=== PATIENT | male | born 1970 | race Caucasian/White ===

== ENCOUNTER 2021-03-24 21:55 | Emergency (ER) | payer MEDICARE, SELFPAY ==
--- NOTE | ~2021-03-24 | CT_ITS ---
EXAMINATION: CT ABDOMEN AND PELVIS WITHOUT CONTRAST CLINICAL INFORMATION: Bilateral flank pain with fever COMPARISON: None TECHNIQUE: Multidetector volumetric imaging was performed from the superior aspect of the liver through the pubic symphysis. Sagittal and coronal reformatted images were obtained on the technologist's workstation. This CT examination was performed using dose optimization techniques as appropriate, variously including the following: *Automated exposure control *Adjustment of mA and/or kV according to patient size (this includes techniques or standardized protocols for targeted exams where dose is matched to indication/reason for exam; i.e. extremities or head) *Use of iterative reconstruction technique DLP: 654 mGy-cm FINDINGS: LUNG BASES: The visualized lung bases are unremarkable. LIVER, GALLBLADDER, AND BILIARY TREE: The liver is normal in size, shape, and attenuation. No focal hepatic lesion or biliary ductal dilatation is present. The gallbladder is unremarkable with no evidence of radiopaque gallstones, gallbladder wall thickening, or obvious pericholecystic inflammatory changes. PANCREAS: Unremarkable. SPLEEN: Unremarkable. ADRENAL GLANDS: Unremarkable. KIDNEYS AND URETERS: The kidneys are normal in size, shape, and attenuation. No hydronephrosis, hydroureter, or calculi seen. No perinephric stranding. BLADDER: Unremarkable. GASTROINTESTINAL TRACT: Scattered colonic diverticula. No evidence of diverticulitis. Normal appendix. Stomach and small bowel unremarkable. ABDOMINAL WALL: No significant hernia is appreciated. LYMPH NODES: Normal. VASCULAR: Aorta mildly atherosclerotic. No aneurysm. PELVIC VISCERA: Unremarkable. OSSEOUS STRUCTURES: No acute or suspicious osseous abnormalities. CT/CT abdomen pelvis wo con IMPRESSION: No urinary calculi. No etiology for the patient's bilateral flank pain and fever is identified. Please note that mild pyelonephritis is not excluded on unenhanced CT.
[2021-03-24 22:47] VITALS: BP 143/96; PULSE 109; RESP 16; TEMP 37.6; O2SAT 98; BMI 30.7
[2021-03-24] MEDS: Acetaminophen 325 MG TABLET 650 MG PO (22:56)
[2021-03-24 23:14] LABS: Appearance Urine CLEAR; Color Urine YELLOW; Glucose Urine UA 100 MG/DL (NEG); Leukocyte Esterase Urine NEG (NEG); Nitrite Urine NEG (NEG); Urine Blood NEG (NEG); Urine Ketones NEG (NEG); Urine Protein NEG (NEG-TRACE)
--- NOTE | 2021-03-24 23:43 | ED.FEVER ---
HPI - Fever General Chief Complaint: Fever Stated Complaint: fever Source: patient Mode of arrival: ambulatory Limitations: no limitations History of Present Illness HPI Narrative: 50-year-old male presents with bilateral flank pain, fever of 104.0 and nausea. States that he did eat some [place]og[place] food prior to experiencing this fever and pain. Patient is angry, does not want answering questions, and is questioning how long this process is going to take. MD elicited complaint: fever Onset (ago): day(s) (1) Measured temperature: 104 F Relieving factors: nothing Associated symptoms: chills, abdominal pain, nausea and back/flank pain Treatments prior to arrival fever: none Related Data Allergies Allergy/AdvReac Type Severity Reaction Status Date / Time No Known Allergies Allergy Verified 03/24/21 22:52 Review of Systems Review of Systems: Constitutional: No Weight loss, positive Fever, positive Chills, No Night Sweats, No Fatigue, No Malaise ENT/Mouth: No Hearing loss, No Ear Pain, No Nasal Congestion, No Sinus Pain, No Hoarseness, No sore throat, No Rhinorrhea, No Swallowing Difficulty Eyes: No Eye Pain, No Swelling, No Redness, No Foreign Body, No Discharge, No Vision Changes Cardiovascular: No Chest Pain, No SOB, No Dyspnea on Exertion, No Orthopnea, No Edema, No Palpitations Respiratory: No Cough, No Sputum, No Wheezing, No Smoke Exposure, No Dyspnea Gastrointestinal: Positive Nausea, now Vomiting, no Diarrhea, positive abdominal Pain, No Hematochezia, No Melena Genitourinary: no irregular bleeding, No Dysuria, No Urinary Frequency, No Hematuria, No Urinary Incontinence, No Urgency, No Flank Pain, No Urinary Flow Changes, No Hesitancy Musculoskeletal: No joint pain, No Myalgias, No Joint Swelling Skin: No Skin Lesions, No rash Neuro: No Weakness, No Numbness, No Paresthesias, No Loss of Consciousness, No Dizziness, No Headache Psych: No Anxiety/Panic, No Depression, No SI/HI/AH/VH, No Social Issues Heme/Lymph: No Bruising, No Bleeding,No Lymphadenopathy Endocrine: No Polyuria, No Polydipsia, No Temperature Intolerance Yes all other systems are reviewed and are negative [facility] Past Medical History Attestation statement: The following information was validated with the patient. Source: old records reviewed Medical History Hypertension No known health problems Social History Social History Advance Directives: No Physical Exam Vital Signs: Vital Signs: Last Vital Signs Temp 99.6 F 03/24/21 22:47 Pulse 109 H 03/24/21 22:47 Resp 16 03/24/21 22:47 BP 143/96 H 03/24/21 22:47 Pulse Ox 98 03/24/21 22:47 Body Mass Index 30.7 Appearance: Alert. Oriented X3. Moderate emotional distress. Eyes: Pupils equal, round and reactive to light. Sclera nonicteric ENT: Pharynx normal. Moist mucous membranes Neck: Normal inspection. Neck supple. CVS: Normal heart rate and rhythm. Pulses normal. Respiratory: No respiratory distress. Breath sounds normal. Abdomen: Soft and diffusely tender with bilateral CVA tenderness. Skin: Skin warm and dry. Normal skin color. Normal skin turgor. Extremities: No lower extremity edema. Gait well balanced with coordinated. Neuro: No motor deficit. No sensory deficit. Cranial nerves 2-12 intact. Course Course Course Narrative: 50-year-old male presents with abdominal pain, nausea, flank pain and fever of 104 at home. States that his symptoms started right after he ate [place]og[place] food. Physical exam indicates diffuse tenderness to abdominal palpation with CVA tenderness. Patient does not want to answer any questions. He is angry, asking how long his stay is going to be. I did describe in detail that with elevated fever and diffuse abdominal pain that this could be an acute abdomen. Patient agrees to continue with course of care for CT scan of abdomen and pelvis, labs, and urinalysis. 1:05 a.m., patient no longer wants to stay. Risks and benefits discussed twice prior to this by this [employer] as well as an RN. Patient discharged against medical advice. MDM - Fever MDM Narrative Medical decision making narrative: Appendicitis, diverticulitis, gastroenteritis Differential Diagnosis Differential diagnosis: Likely cellulitis, fever of unknown origin, pyelonephritis and sepsis Medical Records Attestation: I reviewed the patient's medical records. Lab Data Attestation: I reviewed the patient's lab results. Labs: Lab Results 03/24/21 Range/Units 23:08 Urine Color YELLOW Urine Appearance CLEAR Urine pH 6.0 (5.0-8.0) Ur Specific [place] 1.020 (1.005-1.025) Urine Protein NEG (NEG-TRACE) MG/DL Urine Glucose (UA) 100 H (NEG) MG/DL Urine Ketones NEG (NEG) MG/DL Urine Blood NEG (NEG) Urine Nitrite NEG (NEG) Ur Leukocyte Esterase NEG (NEG) Imaging Data CT scan - abdomen: Attestation: I personally reviewed and interpreted this imaging study as follows: Radiologist's impression: FINDINGS: LUNG BASES: The visualized lung bases are unremarkable.? LIVER, GALLBLADDER, AND BILIARY TREE: The liver is normal in size, shape, and attenuation. No focal hepatic lesion or biliary ductal dilatation is present. The gallbladder is unremarkable with no evidence of radiopaque gallstones, gallbladder wall thickening, or obvious pericholecystic inflammatory changes.? PANCREAS: Unremarkable.? SPLEEN: Unremarkable.? ADRENAL GLANDS: Unremarkable.? KIDNEYS AND URETERS: The kidneys are normal in size, shape, and attenuation. No hydronephrosis, hydroureter, or calculi seen. No perinephric stranding. ? BLADDER: Unremarkable.? GASTROINTESTINAL TRACT: Scattered colonic diverticula. No evidence of diverticulitis. Normal appendix. Stomach and small bowel unremarkable. ABDOMINAL WALL: No significant hernia is appreciated.? LYMPH NODES: Normal. VASCULAR: Aorta mildly atherosclerotic. No aneurysm. PELVIC VISCERA: Unremarkable.? OSSEOUS STRUCTURES: No acute or suspicious osseous abnormalities.? CT/CT abdomen pelvis wo con IMPRESSION: No urinary calculi. No etiology for the patient's bilateral flank pain and fever is identified. Please note that mild pyelonephritis is not excluded on unenhanced CT. Discharge Plan Discharge Clinical Impression: Fever of unknown origin, Abdominal pain Patient Disposition: Left Against Medical Advice Instructions: Fever in Adults (ED), Abdominal Pain (ED) Additional Instructions: You are leaving against medical advice. You are welcome to return at any time. Thank you for choosing this emergency department for evaluation. Please follow-up with primary care physician as needed. Return to the emergency department for any new, concerning, or worsening symptoms. Stand Alone Forms: Against Medical Advice Interventions: ED Discharge Assessment Last Done: 03/25/21 01:17
--- NOTE | 2021-03-25 01:17 | PC.NURSE ---
PT FOUND TO BE IN THE PRIETO YELLING, PACING WHILE ON THE PHONE. THEY HAVEN'T EVEN FUCKING DONE ANYTHING FOR ME, I AM FUCKING LEAVING, I AM OUT OF HERE THIS RN WAS AT BEDSIDE TRYING TO DEESCALATE PT, STATING PCT WOULD BE AT BEDSIDE FOR LABS SHORTLY AND SECURITY SERVICES MANAGER WOULD COME DISCUSS CT SCAN RESULTS WELL. PT TOLD THIS RN FUCK THAT, IM OUT OF HERE HE WAS OFFERED AMA PAPERWORK BUT REFUSED TO WAIT FOR IT TO BE PRINTED.
[2021-03-25 01:20] VITALS: TEMP 40
== END 2021-03-25 01:20 | disposition left against medical advice (07) ==
PROVIDERS: Emergency Provider Emergency Medicine; PCP Internal Medicine
DX: R50.9 Fever, unspecified (principal); R10.9 Unspecified abdominal pain
CPT/HCPCS: 74176; 81003; 96360; 99283; 99284

== ENCOUNTER 2021-03-25 04:49 | Emergency (ER) | payer MEDICARE, SELFPAY ==
--- NOTE | ~2021-03-25 | XR_ITS ---
EXAMINATION: CHEST 2 VIEWS CLINICAL INFORMATION: Fever, rule out pneumonia . COMPARISON: 08/02/2008. TECHNIQUE: PA and lateral views of the chest obtained. FINDINGS: The lungs are well expanded. No focal infiltrate, effusion, edema, or pneumothorax. Cardiac and mediastinal silhouettes are within normal limits for technique. No acute bony abnormality seen XR/XR chest 2V IMPRESSION: No evidence of acute disease
[2021-03-25 04:57] VITALS: BP 146/86; PULSE 119; RESP 18; TEMP 37.9; O2SAT 95; BMI 30.7
[2021-03-25] MEDS: Acetaminophen 325 MG TABLET 650 MG PO (05:27)
[2021-03-25] MEDS: Acetaminophen 325 MG TABLET PO (05:27)
[2021-03-25] MEDS: 0.9 % Sodium Chloride 1,000 ML 999 ML IV ×2 (05:38→08:24)
--- NOTE | 2021-03-25 05:52 | PC.NURSE ---
IV ACCESS OBTAINED, BLOOD SPECIMEN SENT TO LAB FOR PROCESSING. IVF HUNG AND INFUSING WITHOUT DIFFICULTY. AWAITING RESULTS AND IMPROVEMENT IN SYMPTOMS. AWARE OF PLAN OF CARE.
[2021-03-25 06:11] LABS: Influenza A PCR NEGATIVE (Negative); Influenza B PCR NEGATIVE (Negative); Resp Syncy Virus RNA Qual PCR NEGATIVE (Negative); SARS COV2 PCR INHOUSE NEGATIVE (Negative)
--- NOTE | 2021-03-25 07:07 | ED.GENADULT ---
HPI - General Adult General Chief complaint: Nausea/Vomiting/Diarrhea Stated complaint: PT was here earlier, LWT Time Seen by Provider: 03/25/21 05:21 Source: patient Mode of arrival: ambulatory Limitations: no limitations History of Present Illness HPI narrative: 50-year-old male who presents emergency department for evaluation of fever, chills, sweats, abdominal pain, myalgias and arthralgias. The patient's symptoms started yesterday at around 5:30 p.m.. He states that he had a fever as high as 104? F. States that he had severe sweats and shaking chills. He denied cough, chest pain shortness of breath or dyspnea on exertion. He states that he was experiencing lower abdominal pain which he describes as a constant, gas like pain which is 5/10 at its worst. He had associated nausea with dry heaves but no productive vomiting. He denied any frequency, urgency or dysuria. He denied any change in his bowel movements such as diarrhea, bloody stools or dark stools. The patient was here last night and did have a CT scan of the abdomen pelvis but left prior to the result. He states that this morning his symptoms returned so he came back to the emergency department to get re-evaluated. The patient has not been vaccinated for COVID-19 but he believes that he had a COVID-19 infection last year but never tested positive. He has not had any tick bites or rashes. Related Data Previous Rx's Medication Instructions Recorded amoxicillin 500 mg tablet 1,000 mg PO Q12H 10 Days #40 tab 03/25/21 ondansetron 4 mg disintegrating 4 mg PO Q6-8H PRN #14 tab 03/25/21 tablet Allergies Allergy/AdvReac Type Severity Reaction Status Date / Time No Known Allergies Allergy Verified 03/24/21 22:52 Review of Systems Review of Systems: Yes all other systems are reviewed and are negative [facility] Past Medical History [facility] Narrative: Past medical history: Hypertension, GERD. Past surgical history: None. Social history: The patient does smoke cigarettes 1 pack a day times 40 years. He drinks alcohol 2 to 3 times a week, he states that he drinks 10 beers at a time. The patient does use drugs, he states that he snorted cocaine 2 days prior. He denies injecting drugs. Medical History Hypertension No known health problems Social History Social History Alcohol intake: current Patient Tobacco Use Status: Current everyday Tobacco user Advance Directives: No Physical Exam Vital Signs: Vital Signs: Last Vital Signs Temp 100.3 F 03/25/21 04:57 Pulse 72 03/25/21 08:00 Resp 18 03/25/21 04:57 BP 102/71 03/25/21 08:00 Pulse Ox 95 03/25/21 04:57 Body Mass Index 30.7 Const: General: cooperative and no acute distress Orientation/consciousness: oriented to person and oriented to place Limitations: no limitations HENMT: Head: Yes normal to inspection, Yes normocephalic and Yes atraumatic Ears: external ears normal General nose exam: Normal external nose present Face and sinus: Yes normal facial exam Mouth: Normal oral and palatal mucosa present Throat: Yes posterior oropharynx normal Eyes: General: appearance normal, both eyes and all related structures Pupils: Equal, round and reactive pupils present Neck: Neck: Yes normal visual inspection, Yes no lymphadenopathy, Yes trachea midline and Yes supple Chest: Chest palpation & inspection: normal inspection of the chest and normal palpation of entire chest wall Resp: Effort & Inspection: normal respiratory effort and able to speak in complete sentences Auscultation: clear to auscultation bilaterally Cardio: Rate: regular rate Rhythm: regular rhythm Heart sounds: S1 normal heart sound present, S2 normal heart sound present and no murmurs GI: Inspection: Yes normal to inspection Palpation (GI): Soft to palpation, nontender and no guarding Auscultation: normal bowel sounds : General: Yes no CVA tenderness Back/Spine/Pelvis: Back: no CVA tenderness Skin: General skin exam: no rashes or lesions noted Neuro: General: oriented to person and oriented to place Cranial nerves: Yes CN's II-XII intact bilaterally and Yes Equal, round and reactive pupils present Cognition (Neuro): normal cognition Motor exam (neuro): 5/5 motor strength present throughout Extrem: General: Yes normal to inspection Psych: Appearance: grossly normal Speech and movement: Normal speech and movement present Affect: normal affect Attitude: cooperative Thought process: Normal thought process present Thought content: Normal thought content present Course Course Course Narrative: 50-year-old male who presents emergency department for evaluation of fever, chills, sweats, abdominal pain, myalgias arthralgias which began yesterday at 5:30 p.m.. The patient was seen yesterday evening but left against medical advice at around 1:05 a.m.. He returned this morning since he did not feel any better. On examination this morning, he had a low-grade fever of 100.3? F, he was tachycardic with a pulse of 119 and hypertensive with a blood pressure of 146/86. His examination did not reveal an obvious source for his fever. The CT scan of the abdomen pelvis without IV contrast did not reveal an obvious source for his fever, the patient did have scattered colonic diverticula without evidence of diverticulitis, had a normal appearing appendix. I did order blood work on the patient. Patient was ordered to get normal saline IV x2 L, Toradol 30 mg IV for his myalgias and arthralgias and Zofran 4 mg IV for his nausea. 1000: The patient is feeling significantly better after the above treatment. Patient's laboratory evaluation was unremarkable. Chest x-ray was negative. COVID/influenza and RSV tests were negative. Urinalysis was negative. The patient is complaining of sore throat and is requesting antibiotics. I discussed viral versus bacterial infections and the patient would like to be treated with antibiotics therefore was prescribed amoxicillin 1000 mg twice a day for 10 days. He is also given prescription for Zofran ODT 4 mg, 1 every 6-8 hours as needed for nausea and vomiting. The patient was given verbal and printed instructions prior to discharge. The patient was advised to follow-up with his PCP in 2 days and to return to the emergency department if his symptoms get worse or if he develops any new symptoms that are concerning to him. Medical Decision Making Lab Data Result diagrams: 03/25/21 05:34 03/25/21 05:34 Labs: Lab Results 03/25/21 03/25/21 03/25/21 Range/Units 05:29 05:34 05:34 WBC 10.3 (4.8-10.8) X10*3/uL RBC 4.44 L (4.60-5.80) X10*6/uL Hgb 14.1 (14.0-18.0) g/dl Hct 40.9 L (42-52) % MCV 92.1 (80-98) fL MCH 31.8 (27.0-33.0) pg MCHC 34.5 (31.0-36.0) g/dl RDW 12.8 (11.0-16.0) % Plt Count 209 (160-400) X10*3/uL MPV 9.8 (9.4-12.4) fL Immature Gran % (Auto) 0.4 (0.0-0.4) % Neut % (Auto) 80.1 H (45-73) % Lymph % (Auto) 10.4 L (20-40) % [place] % (Auto) 8.3 (2-11) % Eos % (Auto) 0.6 (0-4) % Baso % (Auto) 0.2 (0-2) % Lymph # (Auto) 1.1 L (1.2-4.9) X10*3/uL [place] # (Auto) 0.9 (0.1-1.2) X10*3/uL Eos # (Auto) 0.1 (0.0-0.4) X10*3/uL Baso # (Auto) 0.0 (0.0-0.2) X10*3/uL Abs Immat Gran (auto) 0.04 H (0.00-0.03) X10*3/uL Absolute Neuts (auto) 8.3 (2.0-8.3) X10*3/uL Absolute Nucleated RBC 0.000 (0.0-0.012) X10*3/uL Nucleated RBC % (auto) 0.0 (0.0-0.2) /100WBC Sodium 135 (135-145) mmol/L Potassium 3.9 (3.3-5.1) mmol/L Chloride 98 (96-108) mmol/L Carbon Dioxide 23 (22-29) mmol/L Anion Gap 18 (12-20) BUN 12 (9-16) mg/dL Creatinine 0.94 (0.5-1.4) mg/dL Estim Creat Clear Calc 112.0 Estimated GFR > 60 Random Glucose 116 H (60-115) mg/dL Calcium 8.6 (8.4-10.2) mg/dL Total Bilirubin 0.5 (0.0-1.0) mg/dL Direct Bilirubin 0.2 (0.0-0.5) mg/dL AST 14 (5-37) U/L ALT 15 (0-40) U/L Alkaline Phosphatase 85 (39-117) U/L Total Protein 6.6 (6.5-8.0) g/dL Albumin 4.3 (3.5-5.0) g/dL Lipase 21 (8-78) U/L Coronavirus (PCR) NEGATIVE (Negative) Influenza Type A (PCR) NEGATIVE (Negative) Influenza Type B (PCR) NEGATIVE (Negative) RSV RNA Qual (PCR) NEGATIVE (Negative) Discharge Plan Discharge Clinical Impression: Acute dehydration Pharyngitis Qualifiers: Pharyngitis/tonsillitis etiology: other specified organisms Qualified Code(s): J02.8 - Acute pharyngitis due to other specified organisms Fever Qualifiers: Encounter type: initial encounter Vomiting Qualifiers: Vomiting Intractability: non-intractable Nausea presence: with nausea Patient Disposition: Home, Self-Care Instructions: Pharyngitis (ED) Additional Instructions: Your laboratory evaluation was unremarkable. The CT scan of your abdomen pelvis without IV contrast did not reveal a clear cause for your fever or your pain. Your chest x-ray was normal, no evidence for pneumonia on the x-ray. Your COVID 19, influenza and RSV tests were negative. You most likely have a viral infection causing your symptoms, you may have a bacterial throat infection therefore I am starting you on amoxicillin 1000 mg every 12 hours for 10 days. I am also prescribing Zosyn (ondansetron) 4 mg oral dissolvable tablets. Dissolve 1 tablet in your mouth every 6-8 hours as needed for nausea and vomiting. Take ibuprofen 200 mg pills, 3 pills every 6 hours as needed for pain. Take Tylenol (acetaminophen) 500 mg pills, 2 pills every 4 to 6 hours as needed for pain. Follow-up with your doctor in 2 days. Please return to the emergency department if your symptoms get worse or if you develop any symptoms that are concerning to you. Prescriptions: New amoxicillin 500 mg tablet 1,000 mg PO Q12H 10 Days Qty: 40 RF: 0 ondansetron 4 mg tablet,disintegrating 4 mg PO Q6-8H PRN (Reason: nausea and vomiting) Qty: 14 RF: 0
[2021-03-25 07:09] LABS: MANUAL DIFF FLAG NO
[2021-03-25 07:12] LABS: Basophils Percent Auto 0.2 % (0-2); Eosinophils Absolute Auto 0.1 X10*3/uL (0.0-0.4); Eosinophils Percent Auto 0.6 % (0-4); Hematocrit 40.9 % (42-52); Hemoglobin 14.1 g/dl (14.0-18.0); Imm Gran Abs Auto 0.04 X10*3/uL (0.00-0.03); Imm Gran Pct Auto 0.4 % (0.0-0.4); Lymphocytes Absolute Auto 1.1 X10*3/uL (1.2-4.9); Lymphocytes Percent Auto 10.4 % (20-40); Mean Corpuscular HGB Conc 34.5 g/dl (31.0-36.0); Mean Corpuscular Hemoglobin 31.8 pg (27.0-33.0); Mean Corpuscular Volume 92.1 fL (80-98); Mean Platelet Volume 9.8 fL (9.4-12.4); Monocytes Absolute Auto 0.9 X10*3/uL (0.1-1.2); Monocytes Percent Auto 8.3 % (2-11); Neutrophils Absolute Auto 8.3 X10*3/uL (2.0-8.3); Neutrophils Percent Auto 80.1 % (45-73); Platelet Count 209 X10*3/uL (160-400); Red Blood Count 4.44 X10*6/uL (4.60-5.80); Red Cell Distribution Width 12.8 % (11.0-16.0); White Blood Count 10.3 X10*3/uL (4.8-10.8)
[2021-03-25 07:51] LABS: Alanine Aminotransferase 15 U/L (0-40); Albumin Level 4.3 g/dL (3.5-5.0); Alkaline Phosphatase 85 U/L (39-117); Anion Gap 18 (12-20); Aspartate Amino Transferase 14 U/L (5-37); Bilirubin Direct 0.2 mg/dL (0.0-0.5); Bilirubin Total 0.5 mg/dL (0.0-1.0); Blood Urea Nitrogen 12 mg/dL (9-16); Calcium 8.6 mg/dL (8.4-10.2); Carbon Dioxide 23 mmol/L (22-29); Chloride 98 mmol/L (96-108); Estimated Glomerular Filt Rate > 60; Glucose Random 116 mg/dL (60-115); Lipase 21 U/L (8-78); Potassium 3.9 mmol/L (3.3-5.1); Sodium 135 mmol/L (135-145); Total Protein 6.6 g/dL (6.5-8.0)
[2021-03-25 08:00] VITALS: BP 102/71; PULSE 72
[2021-03-25] MEDS: Ketorolac Tromethamine 15 MG/ML VIAL 30 MG IVPUSH (08:41)
== END 2021-03-25 10:16 | disposition home or self-care (01) ==
PROVIDERS: Emergency Provider Emergency Medicine Emergency Medical Services
DX: E86.0 Dehydration (principal); J02.9 Acute pharyngitis, unspecified; R11.2 Nausea with vomiting, unspecified; R50.9 Fever, unspecified; R00.0 Tachycardia, unspecified; Z20.822 Contact with and (suspected) exposure to COVID-19; I10 Essential (primary) hypertension; F17.210 Nicotine dependence, cigarettes, uncomplicated
CPT/HCPCS: 0241U; 36415; 71046; 74176; 80053; 80076; 81003; 82248; 83690; 85025; 96361; 96374; 96375; 99283; 99284; 99285; J1885; J2405

== ENCOUNTER 2023-09-26 11:05 | Inpatient (IN) | payer MEDICARE, MEDICAID, SELFPAY ==
[2023-09-26] VITALS (8 sets, daily range): BP systolic 111–155; BP diastolic 69–94; PULSE 83–99; RESP 12–23; TEMP 36.5–37.2; O2SAT 93–98; BMI 29.4
--- NOTE | ~2023-09-26 | CT_ITS ---
EXAMINATION: CT CERVICAL SPINE WITHOUT CONTRAST CLINICAL INFORMATION: Neck pain, swelling. COMPARISON: None available. TECHNIQUE: Noncontrast multidetector CT imaging examination of the cervical spine is performed. The axial images and multiplanar reformatted images are reviewed. This CT examination was performed using dose optimization techniques as appropriate, variously including the following: *Automated exposure control *Adjustment of mA and/or kV according to patient size (this includes techniques or standardized protocols for targeted exams where dose is matched to indication/reason for exam; i.e. extremities or head) *Use of iterative reconstruction technique DLP: 461 mGy-cm FINDINGS: The skull base is intact. The visualized paranasal sinuses and mastoid air cells are well aerated. 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 Also, there is a 0.8 cm wide nonunited defect in the left posterior C1 arch. A well-corticated ossicle is present at the margin of the left atlantooccipital joint. These observations could be sequela of remote trauma. There are no acute fractures within the cervical spine. The cervical vertebra are normal in height. There is generally mild multilevel facet arthropathy, including the left-sided facet joint at C2-C3 and right-sided facet joint at C4-C5. There is negligible degenerative anterolisthesis of C4 on C5. At C5-C6, there is moderate degenerative loss of the disc height, endplate sclerosis, osteophytosis and minimal retrolisthesis of C5 on C6. The hypertrophied uncovertebral joints cause [id number] right and moderate left neural foraminal stenosis at C5-C6. The posterior disc-osteophyte complex at C5-C6 causes mild spinal canal stenosis. Mild discovertebral degenerative changes and uncovertebral joint hypertrophy at C6-C7. No prevertebral edema or soft tissue hematoma. There is edema of subcutaneous tissues and intermuscular planes of the posterior neck without evidence of any focal organized collection or soft tissue gas. There appears to be edema of the left semispinalis muscle (images 40-65, series 4). Apparent mild edema within the left oblique capitis inferior muscle (images 30-35, series 4). Mild edema is seen along the left sternocleidomastoid and the adjacent platysma muscle. Trace amount of bland appearing fluid is seen within the deep soft tissues of the left inferolateral neck. No pathologic sized lymph nodes. Thyroid gland is unremarkable. Mild paraseptal emphysema at the visualized lung apices. CT/CT cervical spine wo IV con IMPRESSION: * There is soft tissue edema of the posterior neck and left lateral neck. However, no evidence of any organized collection or soft tissue hematoma. The edema is predominantly seen along intermuscular tissue planes and in the subcutaneous tissues. Also, there does appear to be mild edematous thickening of the left semispinalis muscle and possible edema within the left oblique capitis inferior muscle. The specific cause of these abnormalities is uncertain. If there is no known trauma, then the possibility of myositis should be considered. 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 Query if there is any known remote history of [place] fracture. No acute fractures within the cervical spine. * Moderate degenerative disc disease at C5-C6.
--- NOTE | ~2023-09-26 | CT_ITS ---
EXAMINATION: CT chest, abdomen and pelvis without IV contrast. CLINICAL INDICATION: New onset renal failure. Chronic cough x1 month. COMPARISON: CT abdomen pelvis without contrast 03/25/2021. TECHNIQUE: 5 minutes thin axial and reformatted 3 mm thin sagittal and coronal images of chest, abdomen pelvis were obtained without IV contrast. DLP [id number]. This CT examination was performed using dose optimization technique as appropriate, variously including the following: Automated exposure control Adjustment of MA and/or KV according to patient size(this includes techniques or standardized protocols for targeted exams where dose is matched to indication/reason for exam; extremities or head. Use of iterative reconstruction techniques. FINDINGS: CHEST: LUNGS: The lungs are well-expanded with platelike atelectasis in the lingula and both lung bases. Mediastinum: The heart size and great vessels are normal caliber. The central trachea and the bronchi are widely patent. Thyroid lobes are symmetrical and normal. No abnormal size mediastinal or hilar lymph nodes seen. There is minimal coronary artery calcification. Pleura: There is no pleural thickening, calcification or effusion. Axilla: No abnormal size axillary lymph nodes. The chest wall is unremarkable. ABDOMEN AND PELVIS: Liver, ducts and gallbladder: The liver is normal size, contour and density. No focal lesion or intrahepatic ductal dilatation seen. There is no radiopaque gallstones and wall thickening. Pancreas: Unremarkable unremarkable. Spleen: Unremarkable. Adrenal glands: Unremarkable. Kidneys and ureters: Both kidneys are normal size, contour and position. No radiopaque renal calculi or hydronephrosis seen. There is minimal perinephric stranding. Lymphovascular structures: Abdominal aorta is of normal caliber. The renal arteries are patent bilaterally. No abnormal size retroperitoneal or mesenteric lymph nodes seen. GI tract: There is layering contrast and fluid in mildly distended stomach. The small bowel loops are normal caliber. There is scattered gas, diverticula and minimal stool in the colon without distention. No free air or free fluid seen. Appendix is normal caliber Abdominal wall: Unremarkable. Pelvis: The urinary bladder is mildly distended. No bladder wall thickening or radiopaque calculi seen. No inguinal hernia. Osseous structures: No aggressive lytic or sclerotic process seen. Mild degenerative facet joint arthropathy L5-S1 disc level. CT/CT abdomen pelvis wo IV con IMPRESSION: 1. Platelike atelectasis in the lingula and both lung bases. 2. No acute process seen in the abdomen or pelvis. 3. Scattered colonic diverticulosis without diverticulitis. 4. No radiopaque renal calculi, hydronephrosis.
--- NOTE | ~2023-09-26 | CT_ITS ---
EXAMINATION: CT HEAD WITHOUT CONTRAST CLINICAL INFORMATION: Left upper extremity monoparesis COMPARISON: None available. TECHNIQUE: Contiguous axial imaging was performed from the skull base to vertex without intravenous administration of contrast. This CT examination was performed using dose optimization techniques as appropriate, variously including the following: *Automated exposure control *Adjustment of mA and/or kV according to patient size (this includes techniques or standardized protocols for targeted exams where dose is matched to indication/reason for exam; i.e. extremities or head) *Use of iterative reconstruction technique DLP: 614 mGy-cm FINDINGS: Ventricles, sulci and cisterns are normal. There is no midline shift, no abnormal intra- or extra- axial fluid accumulation. Jeffery and white matter differentiation is normal. Bone window images show no evidence of skull fracture. Marked mucosal thickening opacifying the posterior left ethmoid air cells is seen. CT/CT head/brain wo IV con IMPRESSION: 1. Normal CT scan of the brain. 2. No intracranial hemorrhage or skull fracture is seen. 3. No evidence of space occupying lesion could be found. 4. The current plain CT scan of the brain shows no diagnostic evidence of acute cerebral infarction.
--- NOTE | ~2023-09-26 | US_ITS ---
EXAMINATION: US VENOUS WITH DOPPLER UPPER EXTREMITY, LEFT CLINICAL INFORMATION: Left thumb edema. COMPARISON: None available. TECHNIQUE: Ultrasound of the upper extremity is performed using compression sonography and color and pulse Doppler flow with assessment of augmentation of flow. There is also imaging and Doppler assessment of the jugular and subclavian veins. Spectral analysis with color-flow imaging is performed. FINDINGS: Respiratory variation, normal compression, and augmented flow are noted throughout the upper extremity including the axillary, brachial, cubital, and radial and ulnar veins. There is normal flow in the internal jugular and subclavian veins. There is no visible deep or superficial thrombophlebitis. If the patient's symptoms progress, a followup ultrasound in 5 -7 days might be of value to exclude proximal propagation from a nonvisualized distal arm vein. US/US venous duplex UE LT IMPRESSION: No DVT demonstrated in left upper extremity.
--- NOTE | 2023-09-26 11:25 | ECG_ITS ---
Test Reason : cp Blood Pressure : / mmHG Vent. Rate : 094 BPM Atrial Rate : 094 BPM P-R Int : 178 ms QRS Dur : 112 ms QT Int : 344 ms P-R-T Axes : 041 042 030 degrees QTc Int : 430 ms Normal sinus rhythm Right bundle branch block Abnormal ECG When compared with ECG of 08-JUN-2013 11:20, Right bundle branch block is now Present Referred By: Generic ED Physician Electronically Signed By:JIMMY KAUR
--- NOTE | 2023-09-26 12:17 | ED_ITS ---
HPI - Neuro Symptoms/Deficit General Chief Complaint: Neuro Symptoms/Deficit Stated Complaint: L arm numbness Time Seen by Provider: 09/26/23 11:29 Source: patient Mode of arrival: ambulatory Limitations: no limitations History of Present Illness HPI Narrative: 53 yo male with hx of heavy smoker and sniffs heroin intermittently did so last night. States he has not been to the doctors in years. He notes he went to bed at 3am and his left hand was okay then woke up at 1030am and his left hand wasn't working. He states he isn't sure what happened and has been losing track of time. he also notes chest pain and productive cough center of chest pain for 1 month. denies IVDA to me. Onset (ago): hour(s) (unsure of timing very vague since 3am) Location: left arm History of same: No Severity: severe Quality: weak Relieving factors: none Exacerbating factors: none Context: sudden onset On Anticoagulants: No Associated symptoms: chest pain, cough, fever/chills, headaches and loss of appetite Treatments Prior to Arrival: none Related Data Home Medications Medication Instructions Recorded Confirmed amlodipine 5 mg tablet 5 mg PO DAILY 09/26/23 09/26/23 omeprazole 20 mg capsule,delayed 20 mg PO DAILY indigestion 09/26/23 09/26/23 release Allergies Allergy/AdvReac Type Severity Reaction Status Date / Time No Known Allergies Allergy Verified 03/24/21 22:52 Review of Systems 2 Review of Systems: Constitutional : No Weight loss, No Fever, pos Chills ENT/Mouth : No sore throat, No Rhinorrhea Eyes: No Eye Pain, No Swelling Cardiovascular : pos Chest Pain, pos SOB, no Dyspnea on Exertion, No Orthopnea, No Edema, No Palpitations Respiratory : No Cough, No Sputum Gastrointestinal : pos Nausea, No Vomiting, No Diarrhea, No abdominal Pain, No Hematochezia, No Melena Genitourinary : No Dysuria, No Urinary Frequency Musculoskeletal : No joint pain, No Myalgias, No Joint Swelling Skin : No Skin Lesions, No rash Neuro : pos Weakness, No Numbness, No Dizziness, No Headache Psych : No Anxiety/Panic, No Depression Heme/Lymph: No Bruising, No Lymphadenopathy Endocrine : No Polyuria, No Polydipsia All other systems reviewed and are negative [facility] Past Medical History Attestation statement: The following information was validated with the patient. Source: old records reviewed Medical History Hypertension No known health problems Social History Social History Alcohol intake: current Alcohol type: beer Patient Tobacco Use Status: Current everyday Tobacco user Smoked in Last 30 Days: Yes Substance Use Type: Crack/Cocaine and Heroin Advance Directives: No Advance Directives Information Provided: No Physical Exam 2 Vital Signs: Vital Signs: Last Vital Signs Temp 97.9 F 09/26/23 15:26 Pulse 92 09/26/23 15:26 Resp 12 09/26/23 15:26 BP 147/94 H 09/26/23 15:26 Pulse Ox 95 09/26/23 15:26 O2 Del Method Nasal Cannula 09/26/23 15:26 O2 Flow Rate 2 09/26/23 15:26 BMI result Body Mass Index 29.4 Appearance: Alert. Oriented X3. Mild acute distress. Anxious diaphoretic Eyes: Pupils equal, round and reactive to light. ENT: Pharynx normal. Neck: Normal inspection. Neck supple. CVS: tachycardic heart rate and rhythm. Pulses normal. Respiratory: No respiratory distress. Breath sounds diminished Abdomen: Soft and nontender. Skin: Skin warm and dry. Normal skin color. Normal skin turgor. Extremities: No lower extremity edema. L hand weakness no yard motor operator pulse intact Neuro: Oriented X 3. 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 No sensory deficit L eyelid area appears slightly drooped as well (states this is chronic). Course Course Course Narrative: elevated WBC count at this time infection suspected IV ceftriaxone ordered 1242pm Reevaluation(s) Reevaluation #1: STAT hyperkalemia meds ordered - calcium, lokelma, albuterol, insulin, dextrose, HCO3, albuterol consult to nephrology 110pm Dr. Kolb will come to see patient Dr. Kolb at bedside now 116pm plan for all meds, sierra and repeat K at 230pm will notify Dr. Senior of potential Reevaluation #2: REFUSES SIERRA CATHETER AWARE WE ARE WORRIED ABOUT HIS KIDNEYS HE IS REFUSING Reevaluation #3: K down to 4.3 increase in lactic acidosis due to albuterol use and not infection or severe sepsis was given 10mg for hyperkalemia 1400 out of sierra catheter Additional Reevaluation(s): patient now moving L hand and now states he has tingling in R leg suspect anxiety vs withdrawal. He is moving L hand now. He is not a candidate for TNK given intermittent symptoms and onset last known well 3am. He also cannot have contrast due to AMANDEEP. Medications Administered Generic Name Dose Route Start Last Admin Trade Name Freq PRN Reason Stop Dose Admin Sodium Chloride 1,000 mls @ 150 mls/hr 09/26/23 15:00 09/26/23 15:30 Ns IVCONT 09/26/23 21:33 150 mls/hr .Q6H40M JIM Administration Sodium Chloride 1,000 mls @ 999 mls/hr 09/26/23 15:00 09/26/23 15:30 Ns IV 09/26/23 16:00 999 mls/hr .Q1H1M JIM Administration Discontinued Medications Generic Name Dose Route Start Last Admin Trade Name Freq PRN Reason Stop Dose Admin Albuterol Sulfate 5 mg 09/26/23 13:07 09/26/23 13:21 Albuterol Sulfate (0.083%) 2.5 Mg/3 Ml Vial.Neb INHALE 09/26/23 13:08 Not Given ONCE ONE Albuterol Sulfate 7.5 mg/ 10 mg 09/26/23 13:20 09/26/23 13:23 Albuterol Sulfate 2.5 mg INHALE 09/26/23 13:21 10 mg ONCE ONE Administration Dextrose 25 gm 09/26/23 13:04 09/26/23 13:14 Dextrose 50 % 25 Gm/50 Ml Syringe IVPUSH 09/26/23 13:05 25 gm ONCE ONE Administration Sodium Chloride 1,000 mls @ 999 mls/hr 09/26/23 12:45 09/26/23 15:09 Ns IV 09/26/23 13:45 Infused .Q1H1M JIM Infusion Ceftriaxone Sodium 2 gm/ 50 mls @ 100 mls/hr 09/26/23 12:41 09/26/23 14:29 Sodium Chloride IV 09/26/23 13:10 Infused ONCE ONE Infusion Calcium Gluconate 2 gm in 100 mls @ 50 mls/hr 09/26/23 13:04 09/26/23 13:18 Calcium Gluconate IV 09/26/23 15:03 50 mls/hr ONCE ONE Administration Sodium Chloride 1,000 mls @ 999 mls/hr 09/26/23 13:15 09/26/23 14:30 Ns IV 09/26/23 14:15 Infused .Q1H1M JIM Infusion Insulin Human Regular 10 unit 09/26/23 13:04 09/26/23 13:13 Insulin Regular, Human 100 Unit/Ml 3 Ml Vial IVPUSH 09/26/23 13:05 10 unit ONCE ONE Administration Lidocaine HCl 10 ml 09/26/23 14:23 09/26/23 15:12 Lidocaine Hcl 2 % Urojet 10 Ml Jel.Pf.Chuck TOPICAL 09/26/23 14:24 10 ml ONCE ONE Administration Morphine Sulfate 4 mg 09/26/23 11:51 09/26/23 12:51 Morphine Sulfate 4 Mg/Ml Cartridge IVPUSH 09/26/23 11:52 4 mg ONCE ONE Administration Protocol Ondansetron HCl 4 mg 09/26/23 12:46 09/26/23 12:51 Ondansetron Hcl 4 Mg/2 Ml Vial IVPUSH 09/26/23 12:47 4 mg ONCE ONE Administration Sodium Bicarbonate 50 meq 09/26/23 13:04 09/26/23 13:15 Sodium Bicarbonate 8.4% 50 Meq/50 Ml Syringe IVPUSH 09/26/23 13:05 50 meq ONCE ONE Administration Sodium Zirconium Cyclosilicate 10 gm 09/26/23 13:04 09/26/23 13:14 Sodium Zirconium Cyclosilicate 10 Gm Powd.Pack PO 09/26/23 13:05 10 gm ONCE ONE Administration Medical Decision Making Medical Decision Making MDM Narrative: 53 yo male with PMH with heavy smoking history here with c/o chest pain and cough x 1 month and then sniffed heroin last night and now has 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 He thinks his last known well was 3am but he is not sure and notes he is losing track of time. At this time labs, cultures, lactic acid - CT chest for mass doubt VTE given 1+ month history. I am obtaining CTA of head and neck for possible stroke vs dissection. IV morphine for pain Differential Diagnosis Differential Diagnoses: The differential diagnosis associated with the presentation includes mass, stroke, dissection Admission/Observation Consideration of admission/observation: Escalation of care including admission/observation considered Dr. Kolb and Dr. Senior aware no need for ICU - can hold off HD at this time Consult Healthcare Provider Management of the patient was discussed with: Hospitalist (hospitalist will admit) and Machine Builder Lab Data MDM Lab Attestation statement: I reviewed the patient's lab results. 09/26/23 12:25 09/26/23 14:35 Labs: Lab Results 09/26/23 09/26/23 09/26/23 Range/Units 12:25 12:28 13:09 WBC 18.9 H (4.8-10.8) X10*3/uL RBC 4.92 (4.60-5.80) X10*6/uL Hgb 15.3 (14.0-18.0) g/dl Hct 44.6 (42.0-52.0) % MCV 90.7 (80.0-98.0) fL MCH 31.1 (27.0-33.0) pg MCHC 34.3 (31.0-36.0) g/dl RDW 13.6 (11.0-16.0) % Plt Count 284 (160-400) X10*3/uL MPV 9.3 L (9.4-12.4) fL Immature Gran % (Auto) 1.5 H (0.0-0.4) % Neut % (Auto) 82.6 H (45-73) % Lymph % (Auto) 5.4 L (20-40) % Brooke % (Auto) 10.1 (2-11) % Eos % (Auto) 0.2 (0-4) % Baso % (Auto) 0.2 (0-2) % Lymph # (Auto) 1.0 L (1.2-4.9) X10*3/uL [place]oke # (Auto) 1.9 H (0.1-1.2) X10*3/uL Eos # (Auto) 0.0 (0.0-0.4) X10*3/uL Baso # (Auto) 0.0 (0.0-0.2) X10*3/uL Abs Immat Gran (auto) 0.28 H (0.00-0.03) X10*3/uL Absolute Neuts (auto) 15.6 H (2.0-8.3) x10*3/uL Absolute Nucleated RBC 0.020 H (0.0-0.012) X10*3/uL Nucleated RBC % (auto) 0.1 (0.0-0.2) /100WBC Smear Tech's Comments VERIFIED PT 11.8 (11.1-13.3) SEC INR 1.0 (0.9-1.1) VBG pH 7.29 L (7.32-7.43) VBG pCO2 33 mmHg VBG pO2 133 mmHg VBG HCO3 16 L (22-26) mmol/L VBG O2 Saturation 99.0 % VBG Base Excess -8.9 mmol/L Sodium 138 (135-145) mmol/L Potassium 7.1 H* (3.3-5.1) mmol/L Chloride 104 (96-108) mmol/L Carbon Dioxide 17 L (22-29) mmol/L Anion Gap 24 H (12-20) BUN 29 H (9-16) mg/dL Creatinine 3.14 H (0.5-1.4) mg/dL Estim Creat Clear Calc 31.7 Estimated GFR 21 POC Glucose 82 (60-115) mg/dL Random Glucose 78 (60-115) mg/dL Lactic Acid 2.7 H* (0.5-2.0) mmol/L Lactic Acid F/U @ 2Hr (0.5-2.0) mmol/L Calcium 7.9 L D (8.4-10.2) mg/dL Magnesium 2.9 H (1.6-2.6) mg/dL Total Bilirubin 0.3 (0.0-1.0) mg/dL Direct Bilirubin 0.1 (0.0-0.5) mg/dL AST 94 H (5-37) U/L ALT 44 H (0-40) U/L Alkaline Phosphatase 106 (39-117) U/L Total Creatine Kinase 5217 H (38-174) U/L Troponin I High Sens 114.5 H* (<3.5-35.0) ng/L B-Natriuretic Peptide 71 (<100) pg/mL Total Protein 8.3 H (6.5-8.0) g/dL Albumin 5.3 H (3.5-5.0) g/dL Lipase 41 (8-78) U/L Urine Color Urine Appearance Urine pH (5.0-9.0) Ur Specific [place] (1.005-1.025) Urine Protein (Neg-Trace) mg/dL Urine Glucose (UA) (Negative) mg/dL Urine Ketones (Negative) mg/dL Urine Blood (Negative) Urine Nitrite (Negative) Ur Leukocyte Esterase (Negative) Urine RBC (0-2) /HPF Urine WBC (0-5) /HPF Ur Squamous Epith Cells (0-2) /HPF Urine Bacteria (None Seen) Hyaline Casts (0-2) /LPF Urine Opiates Screen (Not Detect) Urine Fentanyl Screen (Not Detect) Ur Barbiturates Screen (Not Detect) Ur Phencyclidine Scrn (Not Detect) Ur Amphetamines Screen (Not Detect) U Benzodiazepines Scrn (Not Detect) Urine Cocaine Screen (Not Detect) U Marijuana (THC) Screen (Not Detect) Ethyl Alcohol < 10 mg/dL COVID-19 (NANCY) Negative (Negative) COVID-19 Clin Com See Note Influenza Type A (DAYANARA) Negative (Negative) Influenza Type B (DAYANARA) Negative (Negative) Influenza A & B Note See Note 09/26/23 09/26/23 09/26/23 Range/Units 14:19 14:35 15:05 WBC (4.8-10.8) X10*3/uL RBC (4.60-5.80) X10*6/uL Hgb (14.0-18.0) g/dl Hct (42.0-52.0) % MCV (80.0-98.0) fL MCH (27.0-33.0) pg MCHC (31.0-36.0) g/dl RDW (11.0-16.0) % Plt Count (160-400) X10*3/uL MPV (9.4-12.4) fL Immature Gran % (Auto) (0.0-0.4) % Neut % (Auto) (45-73) % Lymph % (Auto) (20-40) % Brooke % (Auto) (2-11) % Eos % (Auto) (0-4) % Baso % (Auto) (0-2) % Lymph # (Auto) (1.2-4.9) X10*3/uL [place] # (Auto) (0.1-1.2) X10*3/uL Eos # (Auto) (0.0-0.4) X10*3/uL Baso # (Auto) (0.0-0.2) X10*3/uL Abs Immat Gran (auto) (0.00-0.03) X10*3/uL Absolute Neuts (auto) (2.0-8.3) x10*3/uL Absolute Nucleated RBC (0.0-0.012) X10*3/uL Nucleated RBC % (auto) (0.0-0.2) /100WBC Smear Tech's Comments PT (11.1-13.3) SEC INR (0.9-1.1) VBG pH (7.32-7.43) VBG pCO2 mmHg VBG pO2 mmHg VBG HCO3 (22-26) mmol/L VBG O2 Saturation % VBG Base Excess mmol/L Sodium (135-145) mmol/L Potassium 4.3 D (3.3-5.1) mmol/L Chloride (96-108) mmol/L Carbon Dioxide (22-29) mmol/L Anion Gap (12-20) BUN (9-16) mg/dL Creatinine (0.5-1.4) mg/dL Estim Creat Clear Calc Estimated GFR POC Glucose 84 (60-115) mg/dL Random Glucose (60-115) mg/dL Lactic Acid (0.5-2.0) mmol/L Lactic Acid F/U @ 2Hr 4.2 H* (0.5-2.0) mmol/L Calcium (8.4-10.2) mg/dL Magnesium (1.6-2.6) mg/dL Total Bilirubin (0.0-1.0) mg/dL Direct Bilirubin (0.0-0.5) mg/dL AST (5-37) U/L ALT (0-40) U/L Alkaline Phosphatase (39-117) U/L Total Creatine Kinase (38-174) U/L Troponin I High Sens 108.2 H* (<3.5-35.0) ng/L B-Natriuretic Peptide (<100) pg/mL Total Protein (6.5-8.0) g/dL Albumin (3.5-5.0) g/dL Lipase (8-78) U/L Urine Color Yellow Urine Appearance Cloudy Urine pH 5.5 (5.0-9.0) Ur Specific [place] 1.010 (1.005-1.025) Urine Protein 100 (2+) H (Neg-Trace) mg/dL Urine Glucose (UA) Negative (Negative) mg/dL Urine Ketones Negative (Negative) mg/dL Urine Blood Large (3+) H (Negative) Urine Nitrite Negative (Negative) Ur Leukocyte Esterase Negative (Negative) Urine RBC >20 H (0-2) /HPF Urine WBC 0-5 (0-5) /HPF Ur Squamous Epith Cells 3-5 (0-2) /HPF Urine Bacteria None Seen (None Seen) Hyaline Casts 6-10 (0-2) /LPF Urine Opiates Screen POSITIVE H (Not Detect) Urine Fentanyl Screen POSITIVE H (Not Detect) Ur Barbiturates Screen Not Detected (Not Detect) Ur Phencyclidine Scrn Not Detected (Not Detect) Ur Amphetamines Screen Not Detected (Not Detect) U Benzodiazepines Scrn Not Detected (Not Detect) Urine Cocaine Screen POSITIVE H (Not Detect) U Marijuana (THC) Screen Not Detected (Not Detect) Ethyl Alcohol mg/dL COVID-19 (NANCY) (Negative) COVID-19 Clin Com Influenza Type A (DAYANARA) (Negative) Influenza Type B (DAYANARA) (Negative) Influenza A & B Note Independent Interpretation I performed an independent interpretation of an: EKG and CT Scan (no ICH) Interpretation: Rate: 94 Rhythm: NSR [place]: normal Normal P waves. Normal JEAN. RBBB pattern ST T wave : no LESLY, t waves are a littl peaked qTC: 430 prior studies: RBBB new. The study has been interpreted contemporaneously by me. . Radiology Impression Discussion of test interpretation with radiology: I have reviewed the radiologist's reading. Critical Care Time Critical Care Time Critical Care Time: Yes Total Critical Care Time: 60 Attestation: emergent treatment of hyperkalemia, renal consult, repeat labs, IVF x 3L, empiric antibiotics, admission I attest to this time spent taking care of the patient Discharge Plan Discharge Clinical Impression: Left hand weakness, Acute hyperkalemia, Elevated troponin, Acute urinary retention, Opiate abuse, continuous, Cocaine abuse, Acidosis, lactic Acute renal failure Qualifiers: Acute renal failure type: unspecified Qualified Code(s): N17.9 - Acute kidney failure, unspecified Rhabdomyolysis Qualifiers: Rhabdomyolysis type: non-traumatic Qualified Code(s): M62.82 - Rhabdomyolysis Patient Disposition: Admitted As Inpatient
[2023-09-26 12:34] LABS: Venous Blood Gas Refer to POC result
[2023-09-26 12:35] LABS: Basophils Percent Auto 0.2 % (0-2); Eosinophils Percent Auto 0.2 % (0-4); Hematocrit 44.6 % (42.0-52.0); Hemoglobin 15.3 g/dl (14.0-18.0); Imm Gran Abs Auto 0.28 X10*3/uL (0.00-0.03); Imm Gran Pct Auto 1.5 % (0.0-0.4); Lymphocytes Percent Auto 5.4 % (20-40); MANUAL DIFF FLAG SCAN; Mean Corpuscular HGB Conc 34.3 g/dl (31.0-36.0); Mean Corpuscular Hemoglobin 31.1 pg (27.0-33.0); Mean Corpuscular Volume 90.7 fL (80.0-98.0); Mean Platelet Volume 9.3 fL (9.4-12.4); Monocytes Absolute Auto 1.9 X10*3/uL (0.1-1.2); Monocytes Percent Auto 10.1 % (2-11); NRBC Pct Auto 0.1 /100WBC (0.0-0.2); Neutrophils Absolute Auto 15.6 x10*3/uL (2.0-8.3); Neutrophils Percent Auto 82.6 % (45-73); Platelet Count 284 X10*3/uL (160-400); Red Blood Count 4.92 X10*6/uL (4.60-5.80); Red Cell Distribution Width 13.6 % (11.0-16.0); SCAN SMEAR FLAG 1; White Blood Count 18.9 X10*3/uL (4.8-10.8)
[2023-09-26 12:36] LABS: VBG Base Excess -8.9 mmol/L; VBG HCO3 16 mmol/L (22-26); VBG pCO2 33 mmHg; VBG pH 7.29 (7.32-7.43); VBG pO2 133 mmHg
[2023-09-26 12:41] LABS: Prothrombin Time 11.8 SEC (11.1-13.3)
[2023-09-26 12:50] LABS: Ethanol < 10 mg/dL
[2023-09-26] MEDS: ondansetron HCL 4 MG/2 ML VIAL IVPUSH (12:51)
[2023-09-26] MEDS: Morphine Sulfate 4 MG/ML CARTRIDGE IVPUSH (12:51)
[2023-09-26] MEDS: cefTRIAXone sodium 2 GM in 0.9 % Sodium Chloride 50 ML IV (12:51)
[2023-09-26 12:52] LABS: Lactic Acid 2.7 mmol/L (0.5-2.0)
[2023-09-26] MEDS: 0.9 % Sodium Chloride 1,000 ML 999 ML IV ×3 (12:52→15:30)
[2023-09-26 12:53] LABS: B Type Natriuretic Peptide 71 pg/mL (<100)
[2023-09-26 12:54] LABS: IDNOW Serial# 9DB6401D; Influenza A Negative (Negative); Influenza B2 Negative (Negative)
[2023-09-26 12:55] LABS: COVID-19 Test Negative (Negative); IDNOW Serial# 08D9AD1C
[2023-09-26 12:57] LABS: SLIDE REVIEW VERIFIED
[2023-09-26 13:02] LABS: Troponin-I High Sensitivity 114.5 ng/L (<3.5-35.0)
[2023-09-26 13:05] LABS: Alanine Aminotransferase 44 U/L (0-40); Albumin Level 5.3 g/dL (3.5-5.0); Alkaline Phosphatase 106 U/L (39-117); Anion Gap 24 (12-20); Aspartate Amino Transferase 94 U/L (5-37); Bilirubin Direct 0.1 mg/dL (0.0-0.5); Bilirubin Total 0.3 mg/dL (0.0-1.0); Blood Urea Nitrogen 29 mg/dL (9-16); Calcium 7.9 mg/dL (8.4-10.2); Carbon Dioxide 17 mmol/L (22-29); Chloride 104 mmol/L (96-108); Creatinine Clr Calc Pharmacy 31.7; Estimated Glomerular Filt Rate 21; Glucose Random 78 mg/dL (60-115); Lipase 41 U/L (8-78); Magnesium 2.9 mg/dL (1.6-2.6); Potassium 7.1 mmol/L (3.3-5.1); Sodium 138 mmol/L (135-145); Total Protein 8.3 g/dL (6.5-8.0)
[2023-09-26] MEDS: Insulin Regular, Human 100 UNIT/ML 3 ML VIAL 10 UNIT IVPUSH (13:13)
[2023-09-26 13:14] LABS: Glucose, Whole Blood 82 mg/dL (60-115)
[2023-09-26] MEDS: Dextrose 50 % 25 GM/50 ML SYRINGE IVPUSH (13:14)
[2023-09-26] MEDS: Sodium Zirconium Cyclosilicate 10 GM POWD.PACK PO (13:14)
[2023-09-26] MEDS: Sodium Bicarbonate 8.4% 50 MEQ/50 ML SYRINGE IVPUSH (13:15)
[2023-09-26] MEDS: Calcium Gluconate/NaCl,Iso-Osm 2 GM/100 ML PLAST..BAG IV (13:18)
[2023-09-26] MEDS: Albuterol Sulfate 7.5 MG, Albuterol Sulfate (0.083%) 2.5 MG 10 MG INHALE (13:23)
[2023-09-26 14:24] LABS: Glucose, Whole Blood 84 mg/dL (60-115)
[2023-09-26 14:31] LABS: Reflex Lactate? Lactic Acid Added
[2023-09-26 14:53] LABS: Potassium 4.3 mmol/L (3.3-5.1)
[2023-09-26 14:57] LABS: ~Lactic Acid-LAB USE ONLY 4.2 mmol/L (0.5-2.0)
--- NOTE | 2023-09-26 15:09 | PC.NURSE ---
pt has a suspected large amount of money on his person, he did not want this RN to count it with him in front of him. he refused to have the money counted and locked in with security. Lula Gilbert RN at bedside witnessed this conversation,
[2023-09-26] MEDS: Lidocaine HCl 2 % Urojet 10 ML JEL.PF.APP TOPICAL (15:12)
[2023-09-26 15:13] LABS: Appearance Urine Cloudy; Color Urine Yellow; Glucose Urine UA Negative (Negative); Leukocyte Esterase Urine Negative (Negative); Nitrite Urine Negative (Negative); PH 5.5 (5.0-9.0); UMIC TRIGGER UACC YES; Urine Blood Large (3+) (Negative); Urine Ketones Negative (Negative); Urine Protein 100 (2+) mg/dL (Neg-Trace)
--- NOTE | 2023-09-26 15:18 | PM.CNNEP ---
History of Present Illness Reason for Consult Consult date: 10/21/23 Reason for consult: AMANDEEP and Hyperkalemia Chief Complaint Chief complaint: left arm weakness History of Present Illness Narrative: 53 yo male with hx of heavy smoker and sniffs heroin intermittently did so last night. States he has not been to the doctors in years. He notes he went to bed at 3am and his left hand was okay then woke up at 1030am and his left hand wasn't working. He states he isn't sure what happened and has been losing track of time. he also notes chest pain and productive cough center of chest pain for 1 month. denies IVDA to me. On admission, potassium was 7.1 with creatinine of 3.3 and hence this consult K is being treated medically Review of Systems Constitutional: Denies fever(s) and Denies weight loss Cardiovascular: Denies chest pain Respiratory: Denies cough and Denies hemoptysis Gastrointestinal: Denies abdominal pain, Denies diarrhea and Denies nausea Musculoskeletal: Denies back pain Denies focal weakness PMFSH Past Medical History Medical History (Updated 10/10/23 @ 00:02 by Heath Barth) Clostridioides difficile diarrhea Cocaine abuse Opiate abuse, continuous Alcohol use disorder Hypertension No known health problems Social History Social History Household Members: Significant Other Housing: House Do you presently have visiting nurse or other home services: No Alcohol intake: current Alcohol type: beer Comment: refuses alarms Patient Tobacco Use Status: Current everyday Tobacco user Tobacco use type: Cigarette Cigarette Packs Per Day: 1 Cigarettes Per Day: 20.0 e-Cigarette/Vaping Use: Currently Using Substance Use Type: Crack/Cocaine service: No Meds Allergies Allergy/AdvReac Type Severity Reaction Status Date / Time No Known Allergies Allergy Verified 03/24/21 22:52 Active Medications: Current Medications Sodium Chloride (Ns) 1,000 mls @ 200 mls/hr IVCONT .Q5H [facility] Stop: 09/26/23 19:59 Sodium Chloride (Ns) 1,000 mls @ 999 mls/hr IV .Q1H1M JIM Stop: 09/26/23 16:00 Home Medications Medication Instructions Recorded Confirmed Last Taken Type amlodipine 5 mg tablet 5 mg PO DAILY 09/26/23 09/26/23 09/24/23 History omeprazole 20 mg capsule,delayed 20 mg PO DAILY indigestion 09/26/23 09/26/23 09/24/23 History release Physical Exam Vital Signs: Last Vital Signs Temp 97.7 F 09/26/23 11:14 Pulse 99 09/26/23 14:53 Resp 13 09/26/23 14:53 BP 137/92 H 09/26/23 14:53 Pulse Ox 93 09/26/23 14:53 O2 Del Method Nasal Cannula 09/26/23 14:53 O2 Flow Rate 2 09/26/23 14:53 BMI result Body Mass Index 29.4 Const General: comfortable Nutritional Appearance: well nourished Orientation/consciousness: patient oriented x3 HEENT Head: No normal to inspection Mouth: moist mucous membranes Neck Neck: Yes supple and Yes no JVD Resp Auscultation: clear to auscultation bilaterally, no rales and rub present Cardio Jugular venous distension: no JVD Palpation: no palpable S3 and no palpable S4 Heart sounds: no rubs GI Palpation (GI): Soft to palpation and nontender Percussion: No Fluid wave present General: Yes no CVA tenderness Back/Spine/Pelvis Back: no CVA tenderness Skin General skin exam: no rashes or lesions noted Neuro General: patient oriented x3 Extrem General: Yes no pedal edema and No clubbing Results Lab Results 09/27/23 04:46 10/01/23 07:43 Lab results: Chemistry 09/26/23 09/26/23 12:25 14:35 Sodium 138 Potassium 7.1 H* 4.3 D Carbon Dioxide 17 L BUN 29 H Creatinine 3.14 H Calcium 7.9 L D Hematology 09/26/23 12:25 WBC 18.9 H Hgb 15.3 Plt Count 284 Urinalysis 09/26/23 15:05 Urine Color Yellow Urine Appearance Cloudy Urine pH 5.5 Ur Specific [place] 1.010 Urine Protein 100 (2+) H Urine Glucose (UA) Negative Urine Ketones Negative Urine Blood Large (3+) H Urine Nitrite Negative Ur Leukocyte Esterase Negative Assessment and Plan (1) Acute hyperkalemia: Status: Resolved (2) Acute renal failure: Qualifiers: Acute renal failure type: unspecified Qualified Code(s): N17.9 - Acute kidney failure, unspecified Status: Resolved Plan Middle aged man with AMANDEEP and severe hyperkalemia DDx for AMANDEEP is extensive including urinary retention, rhabdo, hypoperfusion from volume depletion and GN Suggest Treat hyperkalemia medically and aggressively including Insulin/Dextrose/Lokelma and sodium bicarb Repeat K and if still elevated or if EKG reveals changes of hyperK , would need dialysis Ceballos catheter Image kidneys- USG or CT IV hydration ;Keep I > O Avoid hypotension Check urine for UA, Protein. Creatinine, sodium Procedures Date of Service Date of Service: 10/21/23
[2023-09-26 15:22] LABS: Amphetamine Screen Urine Not Detected (Not Detect); Bacteria Urine None Seen (None Seen); Barbiturates, Urine Not Detected (Not Detect); Benzodiazepines Screen Urine Not Detected (Not Detect); Cannabinoid Screen Urine Not Detected (Not Detect); Cocaine Screen Urine POSITIVE (Not Detect); Fentanyl, urine POSITIVE (Not Detect); Opiate Screen Urine POSITIVE (Not Detect); Phencyclidine Screen Urine Not Detected (Not Detect); RBC Urine >20 /HPF (0-2); WBC Urine 0-5 /HPF (0-5)
[2023-09-26] MEDS: 0.9 % Sodium Chloride 1,000 ML 150 ML IVCONT (15:30)
[2023-09-26 15:33] LABS: Troponin-I High Sensitivity 108.2 ng/L (<3.5-35.0)
--- NOTE | 2023-09-26 15:38 | PHA.MEDREC ---
Pharmacy Consult ? Medication Reconciliation Pharmacy has completed the medication reconciliation. Patient reported medications. Amanda Cotto, BorisD
--- NOTE | 2023-09-26 15:55 | PM.IMHP ---
History of Present Illness Date of Service: 09/26/23 Attending physician on admission: Osiel Lopez Chief Complaint: Left arm numbness Pt is a 53-year-old male with a PMH significant for?HTN, GERD, alcohol use disorder, and polysubstance use disorder who presents to the ED multiple complaints, though mostly concerning for?left upper extremity weakness and numbness. Patient is irritable, easily arousable, and emotionally labile during interview and exam. Patient is often jumping from topic to topic and difficult to get a clear answer from. Patient denies significant history of heroin use, but states that last night he sniffed ?just a little line?. This morning when he woke up his left felt weak and numb. Was unable to open or close his hand. Patient also complains that he is having difficulty standing or walking because his right leg ?feels like rubber? or ?like a fake leg? and also complains of left ankle pain where he sprained it some time ago. Patient apparently has been ?losing time? and is unsure when symptoms began. Also complains of central chest pain that has been ongoing for the past month. Finds it difficult to describe exactly what it feels like, but states it feels like there is ?something moving around in his chest? and ?like my arteries are clogged . Reports feeling it most when his dog steps on his chest. Patient denies significant use of heroin except for 1 time when he attempted to commit suicide by overdosing. Patient currently denies SI/HI. Initially denies cocaine use, but eventually reports smoking crack cocaine around once a week. Also reports smoking 1 pack of cigarettes daily and drinking 6-7 beers a week. However, patient states he did not eat or drink anything yesterday but spent most of his time at the bar. In the ED pt was HR 99 with, tachypnea of 23, compressive slightly hypertensive at 147/94. Labs were significant for leukocytosis 18.9, potassium 7.1 with repeat 4.3, BUN 29, creatinine 3.14, lactic acid 2.7 with repeat 4.2, AST 94, ALT 44, CPK 5217, troponin 114.5 with repeat 108.2. UA negative for UTI. Tested negative for COVID and influenza a and B. will CT of abdomen and pelvis found no acute process. CT of chest found platelike atelectasis in the lingula and both lung bases. CT of head found no acute intracranial hemorrhage, skull fracture, space-occupying lesion, or acute cerebral infarction. EKG demonstrated normal sinus rhythm with RBBB. Pt was treated with morphine, ceftriaxone, ondansetron, insulin, dextrose, Lokelma, albuterol, and lidocaine. Pt will be admitted to the hospital for treatment and further evaluation of AMANDEEP, rhabdomyolysis, and hyperkalemia in the setting of polysubstance use. Review of Systems Review of Systems: Negative except for that stated in the [facility] Medical History (Updated 09/26/23 @ 17:20 by SHAKIR Pereira) Alcohol use disorder Hypertension No known health problems Social History Alcohol intake: current Alcohol type: beer Patient Tobacco Use Status: Current everyday Tobacco user Smoked in Last 30 Days: Yes Substance Use Type: Crack/Cocaine and Heroin Advance Directives: No Advance Directives Information Provided: No Meds Allergies Allergy/AdvReac Type Severity Reaction Status Date / Time No Known Allergies Allergy Verified 03/24/21 22:52 Active Medications: Current Medications Sodium Chloride (Ns) 1,000 mls @ 150 mls/hr IVCONT .Q6H40M [facility] Stop: 09/26/23 21:33 Last Admin: 09/26/23 15:30 Dose: 150 mls/hr Sodium Chloride (Ns) 1,000 mls @ 999 mls/hr IV .Q1H1M [facility] Stop: 09/26/23 16:00 Last Admin: 09/26/23 15:30 Dose: 999 mls/hr Home Medications Medication Instructions Recorded Confirmed Last Taken Type amlodipine 5 mg tablet 5 mg PO DAILY 09/26/23 09/26/23 09/24/23 History omeprazole 20 mg capsule,delayed 20 mg PO DAILY indigestion 09/26/23 09/26/23 09/24/23 History release Physical Exam Vital Signs and Narrative: Vital Signs: Last Vital Signs Temp 97.9 F 09/26/23 15:26 Pulse 92 09/26/23 15:26 Resp 12 09/26/23 15:26 BP 147/94 H 09/26/23 15:26 Pulse Ox 95 09/26/23 15:26 O2 Del Method Nasal Cannula 09/26/23 15:26 O2 Flow Rate 2 09/26/23 15:26 BMI result Body Mass Index 29.4 Constitutional: Alert, irritable, emotionally labile, in no acute distress. Mental Status: Oriented to person, place and time. Eyes: Pupils are equal, round, and reactive to light. Ear, Nose, and Throat: Oropharynx clear, mucous membranes moist. Ears and nose without deformities. Trachea midline. Respiratory: Clear to auscultation bilaterally. No wheezing, rales, or rhonchi. Cardiovascular: S1, S2, tachy. No murmurs, rubs, or gallops. Gastrointestinal: Abdomen soft, non-tender, non-distended. Normal bowel sounds. Neurologic: Moves all extremities spontaneously. 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 symmetrical strength of lower legs bilaterally. Skin: Warm, dry. Musculoskeletal: No cyanosis or clubbing. Extremities: No edema. Psychiatric: Emotionally labile. Results Labs 09/26/23 12:25 09/26/23 14:35 Labs: Laboratory Results - last 24 hr 09/26/23 09/26/23 09/26/23 12:25 12:28 13:09 MCV 90.7 MCH 31.1 MCHC 34.3 RDW 13.6 Plt Count 284 MPV 9.3 L Immature Gran % (Auto) 1.5 H Neut % (Auto) 82.6 H Lymph % (Auto) 5.4 L [place] % (Auto) 10.1 Eos % (Auto) 0.2 Baso % (Auto) 0.2 Lymph # (Auto) 1.0 L [place] # (Auto) 1.9 H Eos # (Auto) 0.0 Baso # (Auto) 0.0 Abs Immat Gran (auto) 0.28 H Absolute Neuts (auto) 15.6 H Absolute Nucleated RBC 0.020 H Nucleated RBC % (auto) 0.1 Smear Tech's Comments VERIFIED PT 11.8 INR 1.0 VBG pH 7.29 L VBG pCO2 33 VBG pO2 133 VBG HCO3 16 L VBG O2 Saturation 99.0 VBG Base Excess -8.9 Anion Gap 24 H Estim Creat Clear Calc 31.7 Estimated GFR 21 POC Glucose 82 Random Glucose 78 Lactic Acid 2.7 H* Lactic Acid F/U @ 2Hr Calcium 7.9 L D Magnesium 2.9 H Total Bilirubin 0.3 Direct Bilirubin 0.1 AST 94 H ALT 44 H Alkaline Phosphatase 106 Total Creatine Kinase 5217 H B-Natriuretic Peptide 71 Total Protein 8.3 H Albumin 5.3 H Lipase 41 Urine Color Urine Appearance Urine pH Ur Specific [place] Urine Protein Urine Glucose (UA) Urine Ketones Urine Blood Urine Nitrite Ur Leukocyte Esterase Urine RBC Urine WBC Ur Squamous Epith Cells Urine Bacteria Hyaline Casts Urine Opiates Screen Urine Fentanyl Screen Ur Barbiturates Screen Ur Phencyclidine Scrn Ur Amphetamines Screen U Benzodiazepines Scrn Urine Cocaine Screen U Marijuana (THC) Screen Ethyl Alcohol < 10 COVID-19 (NANCY) Negative COVID-19 Clin Com See Note Influenza Type A (DAYANARA) Negative Influenza Type B (DAYANARA) Negative Influenza A & B Note See Note 09/26/23 09/26/23 09/26/23 14:19 14:35 15:05 MCV MCH MCHC RDW Plt Count MPV Immature Gran % (Auto) Neut % (Auto) Lymph % (Auto) [place] % (Auto) Eos % (Auto) Baso % (Auto) Lymph # (Auto) [place] # (Auto) Eos # (Auto) Baso # (Auto) Abs Immat Gran (auto) Absolute Neuts (auto) Absolute Nucleated RBC Nucleated RBC % (auto) Smear Tech's Comments PT INR VBG pH VBG pCO2 VBG pO2 VBG HCO3 VBG O2 Saturation VBG Base Excess Anion Gap Estim Creat Clear Calc Estimated GFR POC Glucose 84 Random Glucose Lactic Acid Lactic Acid F/U @ 2Hr 4.2 H* Calcium Magnesium Total Bilirubin Direct Bilirubin AST ALT Alkaline Phosphatase Total Creatine Kinase B-Natriuretic Peptide Total Protein Albumin Lipase Urine Color Yellow Urine Appearance Cloudy Urine pH 5.5 Ur Specific [place] 1.010 Urine Protein 100 (2+) H Urine Glucose (UA) Negative Urine Ketones Negative Urine Blood Large (3+) H Urine Nitrite Negative Ur Leukocyte Esterase Negative Urine RBC >20 H Urine WBC 0-5 Ur Squamous Epith Cells 3-5 Urine Bacteria None Seen Hyaline Casts 6-10 Urine Opiates Screen POSITIVE H Urine Fentanyl Screen POSITIVE H Ur Barbiturates Screen Not Detected Ur Phencyclidine Scrn Not Detected Ur Amphetamines Screen Not Detected U Benzodiazepines Scrn Not Detected Urine Cocaine Screen POSITIVE H U Marijuana (THC) Screen Not Detected Ethyl Alcohol COVID-19 (NANCY) COVID-19 Clin Com Influenza Type A (DAYANARA) Influenza Type B (DAYANARA) Influenza A & B Note Imaging Radiologist's Impressions: Impressions Abdomen/Pelvis CT 09/26/23 14:04 IMPRESSION: 1. Platelike atelectasis in the lingula and both lung bases. 2. No acute process seen in the abdomen or pelvis. 3. Scattered colonic diverticulosis without diverticulitis. 4. No radiopaque renal calculi, hydronephrosis. Chest CT 09/26/23 14:04 IMPRESSION: 1. Platelike atelectasis in the lingula and both lung bases. 2. No acute process seen in the abdomen or pelvis. 3. Scattered colonic diverticulosis without diverticulitis. 4. No radiopaque renal calculi, hydronephrosis. Head CT 09/26/23 14:04 IMPRESSION: 1. Normal CT scan of the brain. 2. No intracranial hemorrhage or skull fracture is seen. 3. No evidence of space occupying lesion could be found. 4. The current plain CT scan of the brain shows no diagnostic evidence of acute cerebral infarction. Assessment and Plan (1) Rhabdomyolysis: Qualifiers: Rhabdomyolysis type: non-traumatic Qualified Code(s): M62.82 - Rhabdomyolysis Status: Acute Plan Pt is a 53-year-old male with a PMH significant for?HTN, GERD, alcohol use disorder, and polysubstance use disorder who presents to the ED multiple complaints, though mostly concerning for?left upper extremity weakness and numbness. Patient is irritable, easily arousable, and emotionally labile during interview and exam. Patient is often jumping from topic to topic and difficult to get a clear answer from. Rhabdomyolysis CPK 5217 Likely secondary to cocaine, heroin, and fentanyl use Patient received aggressive IVF resuscitation in ED Will place on maintenance fluids at 150 mls/hr Follow CPK AMANDEEP Creatinine 3.14 Likely multifactorial: Secondary to rhabdomyolysis, polysubstance use, dehydration Treat as above Follow BMP Hyperkalemia But patient's potassium 7.1 at time of presentation with repeat 2 hours later of 4.3 Received albuterol, insulin, dextrose, and Lokelma in ED Follow BMP Lactic acidosis Initial lactate acid 2.7 with repeat 4.2 and then 2.3 Likely secondary to polysubstance use and then albuterol, not sepsis No indication of bacterial infection: CT of abdomen and pelvis negative, CT of chest negative, UA negative Patient did receive ceftriaxone in ED, but no clear indication to continue antibiotics at this time Tachycardia and tachypnea secondary to cocaine use and albuterol; leukocytosis reactionary Left arm weakness and numbness Likely secondary to rhabdomyolysis and polysubstance use Neurology consult Atypical chest pain Patient complains central, substernal nonradiating chest pain for the past month Possibly secondary to cocaine use Has reproducible Troponins flat; EKG without significant ischemic changes Will get echocardiogram Monitor on telemetry Alcohol use disorder Patient reports drinking 6-7 beers per week, though appears to drink much more Monitor on CIWA Low threshold for starting phenobarb protocol Polysubstance use disorder Frequent use of cocaine/crack, alcohol, reports using heroin only last night, also positive for fentanyl Addiction medicine consult Emotional lability Patient agitated and emotionally labile during interview and exam Reports having ?severe ADHD? but not on any home meds Reports previous suicide attempt by ODing on heroin Currently denies any SI/HI Psychiatry consult GERD Continue PPI Full Code Attending:?Dr. Lopez DVT Prophylaxis: Lovenox Pt will require a hospitalization of at least two nights for treatment of?rhabdomyolysis, AMANDEEP, and hyperkalemia in the setting of polysubstance use. Patient required hospitalization for aggressive IVF resuscitation, close monitoring of labs and cardiac function, as well as specialist evaluation. Quality Stroke Does the patient have a stroke diagnosis?: No VTE Prior VTE?: No VTE Risk Level:: Medical - moderate - high VTE Device Contraindication: Treatment Not Indicated VTE Drug Contraindication: N/A - Med Ordered
[2023-09-26 16:38] LABS: Reflex Lactate? 2 Y
--- NOTE | 2023-09-26 17:03 | MHC.EDTECH ---
PATIENT REPEATED LACTIC ACID DRAWN AND SENT TO LAB ,PT BELONINGS LIST DONE ,VITALS TAKEN .
[2023-09-26 17:22] LABS: ~Lactic Acid-LAB USE ONLY 2.3 mmol/L (0.5-2.0)
--- NOTE | 2023-09-26 17:40 | PC.NURSE ---
PTS GF TO TAKE HOME PTS BELONGINGS INCLUDING MONEY
[2023-09-26] MEDS: Omeprazole 20 MG CAPSULE.DR PO (18:02)
[2023-09-26] MEDS: amLODIPine Besylate 5 MG TABLET PO (18:02)
[2023-09-26] MEDS: Heparin Sodium,Porcine 5,000 UNIT/ML VIAL 5000 UNIT SUBCUT (18:02)
[2023-09-26] MEDS: Nicotine 21 MG PATCH.TD24 TRANSDERMA (18:02)
[2023-09-26 21:26] LABS: Anion Gap 16 (12-20); Blood Urea Nitrogen 28 mg/dL (9-16); Calcium 7.3 mg/dL (8.4-10.2); Carbon Dioxide 20 mmol/L (22-29); Chloride 102 mmol/L (96-108); Creatinine Clr Calc Pharmacy 55.3; Estimated Glomerular Filt Rate 40; Glucose Random 129 mg/dL (60-115); Potassium 3.5 mmol/L (3.3-5.1); Sodium 134 mmol/L (135-145)
--- NOTE | 2023-09-26 22:30 | MHC.EDTECH ---
patients knife has been located. Knife in security office. [place] have not been found. All other patient belongings except for his phone have been sent home with family
--- NOTE | 2023-09-26 22:31 | MHC.EDTECH ---
PATIENT KNIFE IS IN SECURITY ,PATIENT DID NOT COME WITH CAR KEYS .
[2023-09-27] MEDS: Acetaminophen 325 MG TABLET 650 MG PO (00:02)
[2023-09-27] MEDS: Heparin Sodium,Porcine 5,000 UNIT/ML VIAL 5000 UNIT SUBCUT ×3 (00:02→19:20)
[2023-09-27] MEDS: Melatonin 3 MG TABLET 6 MG PO (00:02)
[2023-09-27] MEDS: 0.9 % Sodium Chloride Flush 3 ML SYRINGE IVFLUSH ×2 (00:37→08:34)
[2023-09-27 04:08] VITALS: BP 135/75; PULSE 79; RESP 16; TEMP 36.7; O2SAT 97
[2023-09-27 05:18] LABS: Hematocrit 34.9 % (42.0-52.0); Hemoglobin 11.8 g/dl (14.0-18.0); Mean Corpuscular HGB Conc 33.8 g/dl (31.0-36.0); Mean Corpuscular Hemoglobin 30.6 pg (27.0-33.0); Mean Corpuscular Volume 90.6 fL (80.0-98.0); Mean Platelet Volume 9.7 fL (9.4-12.4); Platelet Count 175 X10*3/uL (160-400); Red Blood Count 3.85 X10*6/uL (4.60-5.80); Red Cell Distribution Width 13.6 % (11.0-16.0); White Blood Count 8.5 X10*3/uL (4.8-10.8)
[2023-09-27 05:42] LABS: Anion Gap 13 (12-20); Blood Urea Nitrogen 24 mg/dL (9-16); Calcium 7.7 mg/dL (8.4-10.2); Carbon Dioxide 23 mmol/L (22-29); Chloride 104 mmol/L (96-108); Creatinine Clr Calc Pharmacy 77.8; Estimated Glomerular Filt Rate 59; Glucose Random 99 mg/dL (60-115); Potassium 3.6 mmol/L (3.3-5.1); Sodium 136 mmol/L (135-145)
[2023-09-27 06:47] VITALS: BP 152/87; PULSE 85; RESP 16; TEMP 36.2; O2SAT 95
--- NOTE | 2023-09-27 07:00 | CA_ITS ---
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 The calculated ejection fraction is 69% by biplane method. - No obvious valvular pathology seen on this study. - There is mild dilatation of the ascending aorta measuring 3.90 cm. Findings Left Ventricle Normal left ventricular cavity size. There is normal left ventricular wall thickness. The left ventricular systolic function is normal. The calculated ejection fraction is 69% by biplane method. There is no evidence of regional wall motion abnormalities. Diastolic function is normal for age. LV peak GLS -21.1%. Right Ventricle Normal right ventricular cavity size and systolic function. Atria Both atria are normal in size. Aortic Valve There is a normal trileaflet aortic valve. There is no aortic valve stenosis. There is no aortic valve regurgitation. Mitral Valve The mitral valve appears normal. There is no mitral valve regurgitation. There is no mitral valve stenosis. Pulmonic Valve The pulmonic valve is likely normal. Tricuspid Valve Normal tricuspid valve structure. There is mild tricuspid valve regurgitation. Mild pulmonary hypertension is present. Great Vessels There is mild dilatation of the ascending aorta measuring 3.90 cm. Venous The inferior vena cava is normal in size and collapses greater than 50% with inspiration. Pericardium/Pleural There is no evidence of pericardial effusion. Prior Study Comparison No prior study available for comparison. Recommendations, Care & Conclusions No obvious valvular pathology seen on this study. Measurements 2D Linear Measurements IVSd: 0.82 0.6-0.9/0.6-1.0 cm LVIDd: 5.10 3.9-5.3/4.2-5.9 cm LVIDd Index: 2.44 2.4-3.2/2.2-3.1 cm/m2 LVIDs: 3.84 2.0-3.6 cm LVPWd: 0.76 0.7-1.1 cm LA Diam: 4.00 2.7-3.8/3.0-4.0 cm LAIDs Index: 1.91 1.5-2.3 cm/m2 LV Mass: 171.35 67-162/88-224 g LV Mass Index: 81.98 43-95/49-115 g/m2 LVOT Diam: 2.20 3.0+(-)1.3 cm 2D Systolic Function EF 4C: 59.70 >55% EF 2C: 76.90 >55% EF BiP: 68.60 >55% Mitral Valve MV Pk E: 1.04 MV PK A: 1.18 MV Decel Time: 203.00 E/A: 0.90 E'Lateral: 13.30 E'Medial: 8.92 E/E' Med: 11.70 E/E' Lat: 7.80 PHT: 59.00 MVA PHT: 3.73 Decel [place]: 5.15 Aortic Valve AoV Pk Dominic: 2.06 AoV Mn Dominic: 1.26 AoV VTI: 0.33 AoV Pk Grad: 17.00 Aov Mn Grad: 8.00 NICOL Cont.VTI: 3.18 LVOT LVOT Pk Dominic: 1.48 LVOT Mn Dominic: 0.97 LVOT VTI: 0.27 LVOT Pk Grad: 9.00 LVOT Mn Grad: 4.00 LVOT Diam: 2.20 LVOT Area: 3.80 Diastolic Function MV Pk E: 1.04 MV Pk A: 1.18 E/A: 0.90 E'Medial: 8.92 E/E' Med: 11.70 E' Laterial: 13.30 E/E' Lat: 7.80 Right Ventricle TAPSE (mm): 25.70 TVS' Dominic: 14.10 Tricuspid Valve TR Pk Dominic: 3.03 TR Pk Grad: 37.00 RA Press: 3.00 RVSP: 40.00 Great Vessels Aorta Sinus of Valsalva: 3.20 2.0-3.5 cm Ao Asc: 3.90 2.1-3.4 cm Pulmonary Veins Pulm Vein S/D 1.50 Pulmonary Valve PV Pk Dominic: 1.14 Peak PV Grad: 5.00 Updated in Other Vendor System with Status of Final Elan Olivas MD electronically signed on 09/27/2023 12:35:05 PM with status of Final
[2023-09-27 07:38] VITALS: BP 152/87; PULSE 85; O2SAT 95
[2023-09-27] MEDS: amLODIPine Besylate 5 MG TABLET PO (08:11)
[2023-09-27] MEDS: Omeprazole 20 MG CAPSULE.DR PO (08:11)
[2023-09-27] MEDS: Lactated Ringers 1,000 ML 125 ML IVCONT (08:35)
[2023-09-27] MEDS: 0.9 % Sodium Chloride 1,000 ML 150 ML IVCONT (10:07)
--- NOTE | 2023-09-27 10:10 | MHC.RECOVRN ---
Met with pt in ED22 after consult placed to Addiction Medicine for substance use. Pt had presented to the ED for loss of motor function in left arm, last known well the night prior after using heroin, [place]. Upon evaluation, pt admitted for treatment of rhabdomyolysis. Pt laying in bed, eyes closed, wakes to voice, engages in conversation, does not appear to be experiencing withdrawal. Pt reports he has not slept in 3 days and is just trying to sleep. Pt reports heroin/fentanyl use, 1 line, [place], the night [employer]. Pt reports prior to this, last opioid use 25 years ago. Pt reports 25 years ago he also only used one time. Denies withdrawal symptoms. Pt reports cocaine use, INH, 3.5 grams, once every 2 weeks since age 29. Pt reports longest time without substances was one week. Pt declines need for recovery support. Pt reports multiple admissions to programs, including a few months on the 5th floor (psych) at [place]. Pt states If I want to go to a program I know what to do. Pt does not report any [facility] tx, only behavioral health. Pt denies questions or concerns for t/w. T/w available if needed, pt encouraged to reach out if questions or concerns arise.
--- NOTE | 2023-09-27 11:30 | MHC.CM.PN ---
Addendum entered by Luisana Mendoza 09/27/23 12:25: PT RECOMMENDING STR CM MET WITH PT WHO STATES HE HAS NO PREFERRED FACILITIES HE STATES HERE, THERE ANYWHERE LONG INSURANCE WILL COVER IT [facility], PTS ACTIVE SA MAY BE A BARRIER TO PLACEMENT Original Note: IMM delivered. Patient is from home with girlfriend. Independent at baseline, no services or DME. PCP: DO Lindsey Vega HCP: CM provided education and offered assistance, patient declined to complete. DP: Goal is home self care, pending hospital course - currently w/ weakness. May be agreeable to home services if recommended. CM will continue to follow for dc needs.
[2023-09-27 11:50] VITALS: BP 135/89; PULSE 89; RESP 15; TEMP 36.7; O2SAT 96
--- NOTE | 2023-09-27 11:51 | MHC.EDTECH ---
Pt washed up and repositioned. New linens and little cath emptied 1000mls. Resting in bed quietly watching tv, call breen within reach.
--- NOTE | 2023-09-27 13:00 | P.PNIM_ITS ---
Subjective Subjective Date of Service: 09/27/23 Interval History: Rhabdomyolysis, cocaine use,? Unspecified numbness Review of Systems Patient feels myalgia Anxious Denies any chest pain or shortness of breath Limited info because patient poor historian Physical Exam 2 Vital Signs: Vital Signs: Last Vital Signs Temp 98.0 F 09/27/23 11:50 Pulse 89 09/27/23 11:50 Resp 15 09/27/23 11:50 BP 135/89 09/27/23 11:50 Pulse Ox 96 09/27/23 11:50 O2 Del Method Room Air 09/27/23 11:50 O2 Flow Rate 2 09/27/23 06:47 BMI result Body Mass Index 29.4 Appearance: Alert.? Oriented X3.?anxious.? cvs: rrr, [id number] . res: clear to auscultation ,no rhonchii or wheezing abd: no rebound or guarding ,nt, bs present. ext pulses present , no cyanosis . neuro: axo3 , nonfocal. Objective Data Active Medications Acetaminophen (Acetaminophen 325 Mg Tablet) 650 mg PO Q6H PRN PRN Reason: Pain, Mild (Pain Scale 1-3) Last Admin: 09/27/23 00:02 Dose: 650 mg Documented By: LIBRA Amlodipine Besylate (Amlodipine Besylate 5 Mg Tablet) 5 mg PO DAILY [facility]; Protocol Last Admin: 09/27/23 08:11 Dose: 5 mg Documented By: YONATAN Benzonatate (Benzonatate 100 Mg Capsule) 100 mg PO TID PRN PRN Reason: Cough Docusate Sodium (Docusate Sodium 100 Mg Capsule) 100 mg PO DAILY PRN PRN Reason: Constipation Heparin Sodium (Porcine) (Heparin Sodium,Porcine 5,000 Unit/Ml Vial) 5,000 unit SUBCUT Q8H [facility] Last Admin: 09/27/23 08:11 Dose: 5,000 unit Documented By: YONATAN Sodium Chloride (Ns) 1,000 mls @ 150 mls/hr IVCONT .Q6H40M [facility] Stop: 09/27/23 16:09 Last Admin: 09/27/23 10:07 Dose: 150 mls/hr Documented By: YONATAN Melatonin (Melatonin 3 Mg Tablet) 6 mg PO BEDTIME PRN PRN Reason: Insomnia Last Admin: 09/27/23 00:02 Dose: 6 mg Documented By: LIBRA Nicotine (Nicotine 21 Mg Patch.Td24) 21 mg TRANSDERMA DAILY [facility] Last Admin: 09/27/23 08:16 Dose: Not Given Documented By: YONATAN Non-Admin Reason: Patient Refused Omeprazole (Omeprazole 20 Mg Capsule.) 20 mg PO DAILY@0630 [facility] Last Admin: 09/27/23 08:11 Dose: 20 mg Documented By: YONATAN Ondansetron HCl (Ondansetron Hcl 4 Mg/2 Ml Vial) 4 mg IVPUSH Q8H PRN PRN Reason: Nausea and Vomiting Oxycodone HCl (Oxycodone Hcl Immed Release 5 Mg Tablet) 5 mg PO Q4H PRN PRN Reason: Pain, Severe (Pain Scale 7-10) Sodium Chloride (0.9 % Sodium Chloride Flush 3 Ml Syringe) 3 ml IVFLUSH QSHIFT [facility] Last Admin: 09/27/23 08:34 Dose: 3 ml Documented By: YONATAN Labs 09/27/23 04:46 09/27/23 04:46 Labs: Laboratory Results - last 24 hr 09/26/23 09/26/23 09/26/23 12:25 13:09 14:19 MCV MCH MCHC RDW Plt Count MPV Absolute Nucleated RBC Nucleated RBC % (auto) Anion Gap 24 H Estim Creat Clear Calc 31.7 Estimated GFR 21 POC Glucose 82 84 Random Glucose 78 Lactic Acid F/U @ 2Hr Lactic Acid F/U @ 4Hr Calcium 7.9 L D Magnesium 2.9 H Total Bilirubin 0.3 Direct Bilirubin 0.1 AST 94 H ALT 44 H Alkaline Phosphatase 106 Total Creatine Kinase 5217 H Total Protein 8.3 H Albumin 5.3 H Lipase 41 Urine Color Urine Appearance Urine pH Ur Specific [place] Urine Protein Urine Glucose (UA) Urine Ketones Urine Blood Urine Nitrite Ur Leukocyte Esterase Urine RBC Urine WBC Ur Squamous Epith Cells Urine Bacteria Hyaline Casts Urine Opiates Screen Urine Fentanyl Screen Ur Barbiturates Screen Ur Phencyclidine Scrn Ur Amphetamines Screen U Benzodiazepines Scrn Urine Cocaine Screen U Marijuana (THC) Screen 09/26/23 09/26/23 09/26/23 14:35 15:05 16:57 MCV MCH MCHC RDW Plt Count MPV Absolute Nucleated RBC Nucleated RBC % (auto) Anion Gap Estim Creat Clear Calc Estimated GFR POC Glucose Random Glucose Lactic Acid F/U @ 2Hr 4.2 H* Lactic Acid F/U @ 4Hr 2.3 H* Calcium Magnesium Total Bilirubin Direct Bilirubin AST ALT Alkaline Phosphatase Total Creatine Kinase Total Protein Albumin Lipase Urine Color Yellow Urine Appearance Cloudy Urine pH 5.5 Ur Specific [place] 1.010 Urine Protein 100 (2+) H Urine Glucose (UA) Negative Urine Ketones Negative Urine Blood Large (3+) H Urine Nitrite Negative Ur Leukocyte Esterase Negative Urine RBC >20 H Urine WBC 0-5 Ur Squamous Epith Cells 3-5 Urine Bacteria None Seen Hyaline Casts 6-10 Urine Opiates Screen POSITIVE H Urine Fentanyl Screen POSITIVE H Ur Barbiturates Screen Not Detected Ur Phencyclidine Scrn Not Detected Ur Amphetamines Screen Not Detected U Benzodiazepines Scrn Not Detected Urine Cocaine Screen POSITIVE H U Marijuana (THC) Screen Not Detected 09/26/23 09/27/23 09/27/23 20:59 04:46 09:40 MCV 90.6 MCH 30.6 MCHC 33.8 RDW 13.6 Plt Count 175 D MPV 9.7 Absolute Nucleated RBC 0.000 Nucleated RBC % (auto) 0.0 Anion Gap 16 13 Estim Creat Clear Calc 55.3 77.8 Estimated GFR 40 59 POC Glucose Random Glucose 129 H 99 Lactic Acid F/U @ 2Hr Lactic Acid F/U @ 4Hr Calcium 7.3 L D 7.7 L Magnesium Total Bilirubin Direct Bilirubin AST ALT Alkaline Phosphatase Total Creatine Kinase > 87868 H > 65897 H Total Protein Albumin Lipase Urine Color Urine Appearance Urine pH Ur Specific [place] Urine Protein Urine Glucose (UA) Urine Ketones Urine Blood Urine Nitrite Ur Leukocyte Esterase Urine RBC Urine WBC Ur Squamous Epith Cells Urine Bacteria Hyaline Casts Urine Opiates Screen Urine Fentanyl Screen Ur Barbiturates Screen Ur Phencyclidine Scrn Ur Amphetamines Screen U Benzodiazepines Scrn Urine Cocaine Screen U Marijuana (THC) Screen Assessment and Plan (1) Cocaine abuse: Status: Acute (2) Rhabdomyolysis: Status: Acute Plan 53-year-old male with a PMH significant for?HTN, GERD, alcohol use disorder, and polysubstance use disorder who presents to the ED multiple complaints, though mostly concerning for?left upper extremity weakness and numbness. Patient is irritable, easily arousable, and emotionally labile during interview and exam. Patient is often jumping from topic to topic and difficult to get a clear answer from. Rhabdomyolysis CPK 5217-next >03912 Likely secondary to cocaine, heroin, and fentanyl use continue fluids ns 150 mls/hr moniter bmp and CPK AMANDEEP Creatinine 3.14-1.28 Likely multifactorial: Secondary to rhabdomyolysis, polysubstance use, dehydration seems improving with hydration Follow BMP Hyperkalemia Received albuterol, insulin, dextrose, and Lokelma in ED-improved. Follow BMP Lactic acidosis Initial lactate acid 2.7 with repeat 4.2 and then 2.3 Likely secondary to polysubstance use and then albuterol, not sepsis No indication of bacterial infection: CT of abdomen and pelvis negative, CT of chest negative, UA negative Patient did receive ceftriaxone in ED, but no clear indication to continue antibiotics at this time Tachycardia and tachypnea leukocytosis reactionary -improved. d/w nephro amandeep, rhabdomyolysis, hyperkalemia, lactic acidosis-changed fluids to Ns@150 ml/her : moniter BMP and CPK. Left arm weakness and numbness Likely secondary to rhabdomyolysis and polysubstance use improving Multiple nonspecific numbness/weakness complaints-? does not fall into specific neuro exam Added neurology evaluation. Atypical chest pain Troponin elevated and flat secondary to cocaine use Possible secondary to cocaine use, currently no chest pain EKG without significant ischemic changes echocardiogram Monitor on telemetry Alcohol use disorder Patient reports drinking 6-7 beers per week, though appears to drink much more Monitor on CIWA Low threshold for starting phenobarb protocol Polysubstance use disorder Frequent use of cocaine/crack, alcohol, reports using heroin only last night, also positive for fentanyl Addiction medicine consult Emotional lability Patient agitated and emotionally labile during interview and exam Reports having ?severe ADHD? but not on any home meds Reports previous suicide attempt by ODing on heroin Currently denies any SI/HI Psychiatry consult GERD Continue PPI Full Code DVT Prophylaxis: Lovenox Ongoing hospitalization need for for treatment of?severe rhabdomyolysis, AMANDEEP, and hyperkalemia in the setting of polysubstance use. Patient required hospitalization for aggressive IVF resuscitation, close monitoring of labs and cardiac function, as well as specialist evaluation. Quality Stroke Does the patient have a stroke diagnosis?: No VTE Prior VTE?: No VTE Risk Level:: Medical - moderate - high VTE Device Contraindication: Treatment Not Indicated VTE Drug Contraindication: N/A - Med Ordered
--- NOTE | 2023-09-27 13:38 | P.CNNE_ITS ---
History of Present Illness Data of Consult Service Date: 09/27/23 Primary Care Provider: DO GARRY Vega Reason for consult: Left arm weakness 53 years old man with polydrug abuse including cocaine who said that he was Mr. Because of drugs woke up 3 days ago and noted that his left hand was weak. Initially he also noted some weakness and numbness in his legs. There was no speech or language difficulty. For some reason he decided not to come to hospital right away. Now he was evaluated in emergency room and was noted to have very high CPK level. He was still complaining of difficulty opening and closing his left hand. There was no complaint of neck pain but there was some left arm discomfort. Review of Systems 2 Review of Systems: Active drug use including cocaine PMFSH Past Medical History Medical History Alcohol use disorder Hypertension No known health problems Social History Social History Alcohol intake: current Alcohol type: beer Patient Tobacco Use Status: Current everyday Tobacco user Smoked in Last 30 Days: Yes Substance Use Type: Crack/Cocaine and Heroin Advance Directives: No Advance Directives Information Provided: No Nutrition Risks: No Nutritional Risk service: No Meds Allergies Allergy/AdvReac Type Severity Reaction Status Date / Time No Known Allergies Allergy Verified 03/24/21 22:52 Active Medications: Current Medications Acetaminophen (Acetaminophen 325 Mg Tablet) 650 mg PO Q6H PRN PRN Reason: Pain, Mild (Pain Scale 1-3) Last Admin: 09/27/23 00:02 Dose: 650 mg Amlodipine Besylate (Amlodipine Besylate 5 Mg Tablet) 5 mg PO DAILY [facility]; Protocol Last Admin: 09/27/23 08:11 Dose: 5 mg Benzonatate (Benzonatate 100 Mg Capsule) 100 mg PO TID PRN PRN Reason: Cough Docusate Sodium (Docusate Sodium 100 Mg Capsule) 100 mg PO DAILY PRN PRN Reason: Constipation Heparin Sodium (Porcine) (Heparin Sodium,Porcine 5,000 Unit/Ml Vial) 5,000 unit SUBCUT Q8H [facility] [place] Last Admin: 09/27/23 08:11 Dose: 5,000 unit Sodium Chloride (Ns) 1,000 mls @ 150 mls/hr IVCONT .Q6H40M [facility] Stop: 09/27/23 16:09 Last Admin: 09/27/23 10:07 Dose: 150 mls/hr Melatonin (Melatonin 3 Mg Tablet) 6 mg PO BEDTIME PRN PRN Reason: Insomnia Last Admin: 09/27/23 00:02 Dose: 6 mg Nicotine (Nicotine 21 Mg Patch.Td24) 21 mg TRANSDERMA DAILY [facility] [place] Last Admin: 09/27/23 08:16 Dose: Not Given Omeprazole (Omeprazole 20 Mg Capsule.) 20 mg PO DAILY@0630 [facility] [place] Last Admin: 09/27/23 08:11 Dose: 20 mg Ondansetron HCl (Ondansetron Hcl 4 Mg/2 Ml Vial) 4 mg IVPUSH Q8H PRN PRN Reason: Nausea and Vomiting Oxycodone HCl (Oxycodone Hcl Immed Release 5 Mg Tablet) 5 mg PO Q4H PRN PRN Reason: Pain, Severe (Pain Scale 7-10) Sodium Chloride (0.9 % Sodium Chloride Flush 3 Ml Syringe) 3 ml IVFLUSH QSHIFT [facility] [place] Last Admin: 09/27/23 08:34 Dose: 3 ml Home Medications Medication Instructions Recorded Confirmed Last Taken Type amlodipine 5 mg tablet 5 mg PO DAILY 09/26/23 09/26/23 09/24/23 History omeprazole 20 mg capsule,delayed 20 mg PO DAILY indigestion 09/26/23 09/26/23 09/24/23 History release Physical Exam 2 Vital Signs: Vital Signs: Last Vital Signs Temp 98.0 F 09/27/23 11:50 Pulse 89 09/27/23 11:50 Resp 15 09/27/23 11:50 BP 135/89 09/27/23 11:50 Pulse Ox 96 09/27/23 11:50 O2 Del Method Room Air 09/27/23 11:50 O2 Flow Rate 2 09/27/23 06:47 BMI result Body Mass Index 29.4 Neuro: Other: He is alert and awake with normal spontaneity of speech fluency comprehension and irritable affect. Face is symmetrical. Visual briscoe are full. Pupils are round reactive. He was able to lift both arms against gravity but left was weak. He was able to extend his left hand at rest but it was significantly weak. Finger flexion was also weak. He was able to lift both legs up in the air up to about 60 degrees. Deep tendon reflexes were 1 to 2+ with flexor plantars. Speech was normal. Results Labs 09/27/23 04:46 09/27/23 04:46 Labs: Short CBC 09/27/23 Range/Units 04:46 WBC 8.5 (4.8-10.8) X10*3/uL Hgb 11.8 L D (14.0-18.0) g/dl Hct 34.9 L D (42.0-52.0) % Plt Count 175 D (160-400) X10*3/uL BMP 09/26/23 09/26/23 09/27/23 14:35 20:59 04:46 Sodium 134 L 136 Potassium 4.3 D 3.5 3.6 Chloride 102 104 Carbon Dioxide 20 L 23 BUN 28 H 24 H Creatinine 1.80 H 1.28 Calcium 7.3 L D 7.7 L Cardiac Enzymes 09/27/23 09/27/23 Range/Units 04:46 09:40 Total Creatine Kinase > 29610 H > 74763 H (38-174) U/L Urine 09/26/23 Range/Units 15:05 Urine Color Yellow Urine Appearance Cloudy Urine pH 5.5 (5.0-9.0) Ur Specific [place] 1.010 (1.005-1.025) Urine Protein 100 (2+) H (Neg-Trace) mg/dL Urine Glucose (UA) Negative (Negative) mg/dL Noncontrast head CT did not reveal any significant abnormality. Assessment and Plan (1) Rhabdomyolysis: Qualifiers: Rhabdomyolysis type: non-traumatic Qualified Code(s): M62.82 - Rhabdomyolysis Status: Acute 53 years old man with likely drug or cocaine related rhabdomyolysis resulting in left arm and hand discomfort and weakness. Mainstay of management is hydration and appropriate management of rhabdomyolysis and involving PT and OT for slow recovery. Procedures Date of Service Date of Service: 09/27/23
[2023-09-27 14:18] LABS: Anion Gap 12 (12-20); Blood Urea Nitrogen 17 mg/dL (9-16); Calcium 8.2 mg/dL (8.4-10.2); Carbon Dioxide 24 mmol/L (22-29); Chloride 105 mmol/L (96-108); Creatinine Clr Calc Pharmacy 85.8; Estimated Glomerular Filt Rate > 60; Glucose Random 152 mg/dL (60-115); Potassium 3.9 mmol/L (3.3-5.1); Sodium 137 mmol/L (135-145)
[2023-09-27] MEDS: oxyCODONE HCl Immed Release 5 MG TABLET PO (15:50)
--- NOTE | 2023-09-27 15:55 | PC.NURSE ---
patient got up to commode two assist, had large watery bowel movement. patient laying in bed, having ankle pain, utilized prn oxycodone per OCT. patient resting back in bed, respirations equal and unlabored.
[2023-09-27 16:48] VITALS: BP 129/77; PULSE 87; RESP 16; TEMP 36.9; O2SAT 97
--- NOTE | 2023-09-27 17:50 | P.CNPS_ITS ---
History of Present Illness Date of Service: 09/27/2023 Chief Complaint: left arm weakness Requesting physician: Osiel Lopez Discussed with referring provider: Yes Sources of Information: patient interviewed, chart reviewed and crisis/core team assessment reviewed HPI Narrative: Mr. Carney is a 53 year-old male who came with with left arm weakness. He was found to have rhadomyolosis, AMANDEEP, hyperkalemia. Utox positive for fentanyl, opioids, cocaine. Psychiatry consulted due to periods of agitation/emotionally labile. Pt seen in the ED. Pt was falling asleep. He reports he was upset and overwhelmed but now finally following asleep. He received oxycodone for pain although he continually has denied s/s of opioid withdrawal, he had loose stools and was diaphoretic. He denies any psychiatric concerns. No overt psychosis or delusions. No SI/HI. Pt reports that if he needs he will ask for psych to come back as he does not think he needs anything at this time. [facility] Medical History (Updated 09/27/23 @ 17:59 by Maki Turcios) Alcohol use disorder Hypertension No known health problems Diagnostics Vital Signs (24Hr): Vital Signs - 24 hr 09/26/23 20:00 09/26/23 22:33 09/26/23 23:48 Temperature 98.1 F 97.8 F 98.7 F Pulse Rate 86 83 87 Respiratory Rate 14 14 16 Blood Pressure 135/87 113/72 115/77 Pulse Oximetry 98 97 98 Oxygen Delivery Method Nasal Cannula Nasal Cannula Nasal Cannula Oxygen Flow Rate 2 2 2 09/27/23 04:08 09/27/23 06:47 09/27/23 07:38 Temperature 98.0 F 97.2 F Pulse Rate 79 85 85 Respiratory Rate 16 16 Blood Pressure 135/75 152/87 H 152/87 H Pulse Oximetry 97 95 95 Oxygen Delivery Method Nasal Cannula Nasal Cannula Oxygen Flow Rate 2 2 09/27/23 11:50 09/27/23 16:48 Temperature 98.0 F 98.4 F Pulse Rate 89 87 Respiratory Rate 15 16 Blood Pressure 135/89 129/77 Pulse Oximetry 96 97 Oxygen Delivery Method Room Air Room Air Oxygen Flow Rate BMI result Body Mass Index 29.4 Labs 09/27/23 04:46 09/27/23 13:53 Labs: Laboratory Results - last 48 hr 09/26/23 09/26/23 09/26/23 12:25 12:28 13:09 WBC 18.9 H RBC 4.92 Hgb 15.3 Hct 44.6 MCV 90.7 MCH 31.1 MCHC 34.3 RDW 13.6 Plt Count 284 MPV 9.3 L Immature Gran % (Auto) 1.5 H Neut % (Auto) 82.6 H Lymph % (Auto) 5.4 L Woodson % (Auto) 10.1 Eos % (Auto) 0.2 Baso % (Auto) 0.2 Lymph # (Auto) 1.0 L Woodson # (Auto) 1.9 H Eos # (Auto) 0.0 Baso # (Auto) 0.0 Abs Immat Gran (auto) 0.28 H Absolute Neuts (auto) 15.6 H Absolute Nucleated RBC 0.020 H Nucleated RBC % (auto) 0.1 Smear Tech's Comments VERIFIED PT 11.8 INR 1.0 VBG pH 7.29 L VBG pCO2 33 VBG pO2 133 VBG HCO3 16 L VBG O2 Saturation 99.0 VBG Base Excess -8.9 Sodium 138 Potassium 7.1 H* Chloride 104 Carbon Dioxide 17 L Anion Gap 24 H BUN 29 H Creatinine 3.14 H Estim Creat Clear Calc 31.7 Estimated GFR 21 POC Glucose 82 Random Glucose 78 Lactic Acid 2.7 H* Lactic Acid F/U @ 2Hr Lactic Acid F/U @ 4Hr Calcium 7.9 L D Magnesium 2.9 H Total Bilirubin 0.3 Direct Bilirubin 0.1 AST 94 H ALT 44 H Alkaline Phosphatase 106 Total Creatine Kinase 5217 H Troponin I High Sens 114.5 H* B-Natriuretic Peptide 71 Total Protein 8.3 H Albumin 5.3 H Lipase 41 Urine Color Urine Appearance Urine pH Ur Specific [place] Urine Protein Urine Glucose (UA) Urine Ketones Urine Blood Urine Nitrite Ur Leukocyte Esterase Urine RBC Urine WBC Ur Squamous Epith Cells Urine Bacteria Hyaline Casts Urine Opiates Screen Urine Fentanyl Screen Ur Barbiturates Screen Ur Phencyclidine Scrn Ur Amphetamines Screen U Benzodiazepines Scrn Urine Cocaine Screen U Marijuana (THC) Screen Ethyl Alcohol < 10 COVID-19 (NANCY) Negative COVID-19 Clin Com See Note Influenza Type A (DAYANARA) Negative Influenza Type B (DAYANARA) Negative Influenza A & B Note See Note 09/26/23 09/26/23 09/26/23 14:19 14:35 15:05 WBC RBC Hgb Hct MCV MCH MCHC RDW Plt Count MPV Immature Gran % (Auto) Neut % (Auto) Lymph % (Auto) Woodson % (Auto) Eos % (Auto) Baso % (Auto) Lymph # (Auto) Woodson # (Auto) Eos # (Auto) Baso # (Auto) Abs Immat Gran (auto) Absolute Neuts (auto) Absolute Nucleated RBC Nucleated RBC % (auto) Smear Tech's Comments PT INR VBG pH VBG pCO2 VBG pO2 VBG HCO3 VBG O2 Saturation VBG Base Excess Sodium Potassium 4.3 D Chloride Carbon Dioxide Anion Gap BUN Creatinine Estim Creat Clear Calc Estimated GFR POC Glucose 84 Random Glucose Lactic Acid Lactic Acid F/U @ 2Hr 4.2 H* Lactic Acid F/U @ 4Hr Calcium Magnesium Total Bilirubin Direct Bilirubin AST ALT Alkaline Phosphatase Total Creatine Kinase Troponin I High Sens 108.2 H* B-Natriuretic Peptide Total Protein Albumin Lipase Urine Color Yellow Urine Appearance Cloudy Urine pH 5.5 Ur Specific [place] 1.010 Urine Protein 100 (2+) H Urine Glucose (UA) Negative Urine Ketones Negative Urine Blood Large (3+) H Urine Nitrite Negative Ur Leukocyte Esterase Negative Urine RBC >20 H Urine WBC 0-5 Ur Squamous Epith Cells 3-5 Urine Bacteria None Seen Hyaline Casts 6-10 Urine Opiates Screen POSITIVE H Urine Fentanyl Screen POSITIVE H Ur Barbiturates Screen Not Detected Ur Phencyclidine Scrn Not Detected Ur Amphetamines Screen Not Detected U Benzodiazepines Scrn Not Detected Urine Cocaine Screen POSITIVE H U Marijuana (THC) Screen Not Detected Ethyl Alcohol COVID-19 (NANCY) COVID-19 Clin Com Influenza Type A (DAYANARA) Influenza Type B (DAYANARA) Influenza A & B Note 09/26/23 09/26/23 09/27/23 16:57 20:59 04:46 WBC 8.5 RBC 3.85 L D Hgb 11.8 L D Hct 34.9 L D MCV 90.6 MCH 30.6 MCHC 33.8 RDW 13.6 Plt Count 175 D MPV 9.7 Immature Gran % (Auto) Neut % (Auto) Lymph % (Auto) Woodson % (Auto) Eos % (Auto) Baso % (Auto) Lymph # (Auto) Woodson # (Auto) Eos # (Auto) Baso # (Auto) Abs Immat Gran (auto) Absolute Neuts (auto) Absolute Nucleated RBC 0.000 Nucleated RBC % (auto) 0.0 Smear Tech's Comments PT INR VBG pH VBG pCO2 VBG pO2 VBG HCO3 VBG O2 Saturation VBG Base Excess Sodium 134 L 136 Potassium 3.5 3.6 Chloride 102 104 Carbon Dioxide 20 L 23 Anion Gap 16 13 BUN 28 H 24 H Creatinine 1.80 H 1.28 Estim Creat Clear Calc 55.3 77.8 Estimated GFR 40 59 POC Glucose Random Glucose 129 H 99 Lactic Acid Lactic Acid F/U @ 2Hr Lactic Acid F/U @ 4Hr 2.3 H* Calcium 7.3 L D 7.7 L Magnesium Total Bilirubin Direct Bilirubin AST ALT Alkaline Phosphatase Total Creatine Kinase > 00078 H Troponin I High Sens B-Natriuretic Peptide Total Protein Albumin Lipase Urine Color Urine Appearance Urine pH Ur Specific [place] Urine Protein Urine Glucose (UA) Urine Ketones Urine Blood Urine Nitrite Ur Leukocyte Esterase Urine RBC Urine WBC Ur Squamous Epith Cells Urine Bacteria Hyaline Casts Urine Opiates Screen Urine Fentanyl Screen Ur Barbiturates Screen Ur Phencyclidine Scrn Ur Amphetamines Screen U Benzodiazepines Scrn Urine Cocaine Screen U Marijuana (THC) Screen Ethyl Alcohol COVID-19 (NANCY) COVID-19 Clin Com Influenza Type A (DAYANARA) Influenza Type B (DAYANARA) Influenza A & B Note 09/27/23 09/27/23 09:40 13:53 WBC RBC Hgb Hct MCV MCH MCHC RDW Plt Count MPV Immature Gran % (Auto) Neut % (Auto) Lymph % (Auto) Woodson % (Auto) Eos % (Auto) Baso % (Auto) Lymph # (Auto) Woodson # (Auto) Eos # (Auto) Baso # (Auto) Abs Immat Gran (auto) Absolute Neuts (auto) Absolute Nucleated RBC Nucleated RBC % (auto) Smear Tech's Comments PT INR VBG pH VBG pCO2 VBG pO2 VBG HCO3 VBG O2 Saturation VBG Base Excess Sodium 137 Potassium 3.9 Chloride 105 Carbon Dioxide 24 Anion Gap 12 BUN 17 H Creatinine 1.16 Estim Creat Clear Calc 85.8 Estimated GFR > 60 POC Glucose Random Glucose 152 H Lactic Acid Lactic Acid F/U @ 2Hr Lactic Acid F/U @ 4Hr Calcium 8.2 L D Magnesium Total Bilirubin Direct Bilirubin AST ALT Alkaline Phosphatase Total Creatine Kinase > 11207 H > 54571 H Troponin I High Sens B-Natriuretic Peptide Total Protein Albumin Lipase Urine Color Urine Appearance Urine pH Ur Specific [place] Urine Protein Urine Glucose (UA) Urine Ketones Urine Blood Urine Nitrite Ur Leukocyte Esterase Urine RBC Urine WBC Ur Squamous Epith Cells Urine Bacteria Hyaline Casts Urine Opiates Screen Urine Fentanyl Screen Ur Barbiturates Screen Ur Phencyclidine Scrn Ur Amphetamines Screen U Benzodiazepines Scrn Urine Cocaine Screen U Marijuana (THC) Screen Ethyl Alcohol COVID-19 (NANCY) COVID-19 Clin Com Influenza Type A (DAYANARA) Influenza Type B (DAYANARA) Influenza A & B Note Imaging Radiology Impressions: ITS Impressions Abdomen/Pelvis CT 09/26/23 14:04 IMPRESSION: 1. Platelike atelectasis in the lingula and both lung bases. 2. No acute process seen in the abdomen or pelvis. 3. Scattered colonic diverticulosis without diverticulitis. 4. No radiopaque renal calculi, hydronephrosis. Chest CT 09/26/23 14:04 IMPRESSION: 1. Platelike atelectasis in the lingula and both lung bases. 2. No acute process seen in the abdomen or pelvis. 3. Scattered colonic diverticulosis without diverticulitis. 4. No radiopaque renal calculi, hydronephrosis. Head CT 09/26/23 14:04 IMPRESSION: 1. Normal CT scan of the brain. 2. No intracranial hemorrhage or skull fracture is seen. 3. No evidence of space occupying lesion could be found. 4. The current plain CT scan of the brain shows no diagnostic evidence of acute cerebral infarction. Mental Status Exam Mental Status Exam Narrative: Appearance: wearing hospital gown, fair hygiene, in NAD Behavior: superficially guarded Psychomotor: no agitation or retardation noted Speech: clear, regular rate/spontaneous Mood: tired Affect: congruent SI: none HI: none VH/AH: none Delusions: none Insight/judgment: poor x 2. Alert, oriented x 3. Medications Medications Current Medications Acetaminophen (Acetaminophen 325 Mg Tablet) 650 mg PO Q6H PRN PRN Reason: Pain, Mild (Pain Scale 1-3) Last Admin: 09/27/23 00:02 Dose: 650 mg Amlodipine Besylate (Amlodipine Besylate 5 Mg Tablet) 5 mg PO DAILY JIM; Protocol Last Admin: 09/27/23 08:11 Dose: 5 mg Benzonatate (Benzonatate 100 Mg Capsule) 100 mg PO TID PRN PRN Reason: Cough Docusate Sodium (Docusate Sodium 100 Mg Capsule) 100 mg PO DAILY PRN PRN Reason: Constipation Heparin Sodium (Porcine) (Heparin Sodium,Porcine 5,000 Unit/Ml Vial) 5,000 unit SUBCUT Q8H [facility] Last Admin: 09/27/23 08:11 Dose: 5,000 unit Melatonin (Melatonin 3 Mg Tablet) 6 mg PO BEDTIME PRN PRN Reason: Insomnia Last Admin: 09/27/23 00:02 Dose: 6 mg Nicotine (Nicotine 21 Mg Patch.Td24) 21 mg TRANSDERMA DAILY [facility] Last Admin: 09/27/23 08:16 Dose: Not Given Omeprazole (Omeprazole 20 Mg Capsule.Dr) 20 mg PO DAILY@0630 [facility] Last Admin: 09/27/23 08:11 Dose: 20 mg Ondansetron HCl (Ondansetron Hcl 4 Mg/2 Ml Vial) 4 mg IVPUSH Q8H PRN PRN Reason: Nausea and Vomiting Oxycodone HCl (Oxycodone Hcl Immed Release 5 Mg Tablet) 5 mg PO Q4H PRN PRN Reason: Pain, Severe (Pain Scale 7-10) Last Admin: 09/27/23 15:50 Dose: 5 mg Sodium Chloride (0.9 % Sodium Chloride Flush 3 Ml Syringe) 3 ml IVFLUSH QSHIFT [facility] Last Admin: 09/27/23 17:08 Dose: Not Given Allergies Allergies Allergy/AdvReac Type Severity Reaction Status Date / Time No Known Allergies Allergy Verified 03/24/21 22:52 Assessment & Plan Assessment & Plan (1) Substance induced mood disorder: Status: Acute Code(s): F19.94 - Other psychoactive substance use, unspecified with psychoactive substance-induced mood disorder Plan Mr. Carney appears calmer, yesterday and earlier today more agitated and combative. RN had noticed loose stools, and diaphoresis, he has denied significant use of opioids and denies withdrawal. He did receive oxycodone for pain, appears calmer after. No behavioral concerns at this point. If pt's behaviors worsen or pt request to see psychiatry, please do new consult. Total time managing care of this patient today ____ minutes.
--- NOTE | 2023-09-27 19:18 | P.PNNP_ITS ---
Subjective Subjective Date of Service: 09/27/23 Interval history: Events noted. All recent data reviewed.D/W hospitalist this morning Physical Exam 2 Vital Signs: Vital Signs: Last Vital Signs Temp 98.4 F 09/27/23 16:48 Pulse 87 09/27/23 16:48 Resp 16 09/27/23 16:48 BP 129/77 09/27/23 16:48 Pulse Ox 97 09/27/23 16:48 O2 Del Method Room Air 09/27/23 16:48 O2 Flow Rate 2 09/27/23 06:47 BMI result Body Mass Index 29.4 Const: General: comfortable and no acute distress O rientation/consciousness: patient oriented x3 HEENT: Head: Yes normocephalic Mouth: Normal oral and palatal mucosa present Eyes: EOM: EOMs intact bilaterally Neck: Neck: Yes supple Resp: Auscultation: clear to auscultation bilaterally Cardio: Jugular venous distension: no JVD Rate: regular rate GI: Palpation (GI): Soft to palpation Auscultation: normal bowel sounds : General: Yes no CVA tenderness Back/Spine/Pelvis: Back: no CVA tenderness Skin: General skin exam: no rashes or lesions noted Neuro: General: patient oriented x3 and moves all extremities Extrem: General: Yes no pedal edema Objective Data Labs 09/27/23 04:46 09/27/23 13:53 Labs: Laboratory Results - last 24 hr 09/26/23 09/27/23 09/27/23 20:59 04:46 09:40 WBC 8.5 RBC 3.85 L D Hgb 11.8 L D Hct 34.9 L D MCV 90.6 MCH 30.6 MCHC 33.8 RDW 13.6 Plt Count 175 D MPV 9.7 Absolute Nucleated RBC 0.000 Nucleated RBC % (auto) 0.0 Sodium 134 L 136 Potassium 3.5 3.6 Chloride 102 104 Carbon Dioxide 20 L 23 Anion Gap 16 13 BUN 28 H 24 H Creatinine 1.80 H 1.28 Estim Creat Clear Calc 55.3 77.8 Estimated GFR 40 59 Random Glucose 129 H 99 Calcium 7.3 L D 7.7 L Total Creatine Kinase > 08706 H > 04459 H 09/27/23 13:53 WBC RBC Hgb Hct MCV MCH MCHC RDW Plt Count MPV Absolute Nucleated RBC Nucleated RBC % (auto) Sodium 137 Potassium 3.9 Chloride 105 Carbon Dioxide 24 Anion Gap 12 BUN 17 H Creatinine 1.16 Estim Creat Clear Calc 85.8 Estimated GFR > 60 Random Glucose 152 H Calcium 8.2 L D Total Creatine Kinase > 07983 H Microbiology Microbiology Results: Microbiology 09/26/23 12:44 Blood - Venous Blood Culture - Preliminary No growth after 24 hours. 09/26/23 12:25 Blood - Venous Blood Culture - Preliminary No growth after 24 hours. Procedures Date of Service Date of Service: 09/27/23 Assessment & Plan Assessment and plan (1) Acute renal failure: Status: Acute (2) Rhabdomyolysis: Status: Acute (3) Cocaine abuse: Status: Acute Plan UO good. Serum K normalized Serum creatinine improving Was on IV fluids this AM for Rhabdomolysis C/W current supportive care for now No indication for renal replacement therapy Labs AM. Shall closely follow up Progress Note: Quality Stroke Does the patient have a stroke diagnosis?: No
--- NOTE | 2023-09-27 19:23 | PC.NURSE ---
1800 ml urine emptied out of pt little bag
[2023-09-27 20:46] VITALS: BP 128/82; PULSE 93; RESP 18; TEMP 36.8; O2SAT 95
--- NOTE | 2023-09-27 20:46 | MHC.EDTECH ---
This tech took over care of patient at this time,hourly rounds and vitals completed,patient ate 100% of supper. patient is resting at this time. call breen in reach
--- NOTE | 2023-09-27 21:29 | PC.NURSE ---
this rn assumed care of pt @ 1900. per previous shift nurse NS needs paused for pt to eat dinner and restarted after dinner. this rn gave report to floor rn. fire extinguisher charger confirmed with this rn the order for ns discontinued due to scan status fluids completed by this rn. this rn made floor rn aware
[2023-09-27 21:46] VITALS: BMI 29.0
[2023-09-28] VITALS: BP 139/80; PULSE 98; RESP 18; TEMP 37.7; O2SAT 96
[2023-09-28] MEDS: 0.9 % Sodium Chloride Flush 3 ML SYRINGE IVFLUSH ×3 (00:03→15:36)
[2023-09-28] MEDS: Heparin Sodium,Porcine 5,000 UNIT/ML VIAL 5000 UNIT SUBCUT ×3 (00:03→16:56)
[2023-09-28] MEDS: ondansetron HCL 4 MG/2 ML VIAL IVPUSH (02:09)
[2023-09-28] MEDS: 0.9 % Sodium Chloride 1,000 ML 100 ML IVCONT (02:46)
[2023-09-28] MEDS: LORazepam 0.5 MG TABLET PO (02:59)
--- NOTE | 2023-09-28 03:07 | PC.NURSE ---
Addendum entered by Carly Peña RN 09/28/23 05:11: Pt agreeable for new IV at this time, 20 gauge in L lower arm; fluids running Original Note: Went to start pt fluids IV not working, attempted another IV - pt stating Yecenia had enough of this pin cushion shit come back in an hr Told pt i would come back and try again in a bit. aware
[2023-09-28 04:00] VITALS: BP 135/84; PULSE 99; RESP 18; TEMP 37.7; O2SAT 94
[2023-09-28] MEDS: Omeprazole 20 MG CAPSULE.DR PO (06:10)
[2023-09-28 06:57] LABS: Anion Gap 12 (12-20); Blood Urea Nitrogen 11 mg/dL (9-16); Calcium 8.2 mg/dL (8.4-10.2); Carbon Dioxide 28 mmol/L (22-29); Chloride 103 mmol/L (96-108); Creatinine Clr Calc Pharmacy 108.8; Estimated Glomerular Filt Rate > 60; Glucose Random 106 mg/dL (60-115); Potassium 3.8 mmol/L (3.3-5.1); Sodium 139 mmol/L (135-145)
[2023-09-28 08:00] VITALS: BP 136/72; PULSE 93; RESP 20; TEMP 37.7; O2SAT 94
[2023-09-28] MEDS: amLODIPine Besylate 5 MG TABLET PO (08:52)
--- NOTE | 2023-09-28 11:12 | P.PNIM_ITS ---
Subjective Subjective Date of Service: 09/28/23 Interval History: Rhabdomyolysis, cocaine use,? Unspecified numbness Review of Systems less myalgia,Anxious weakness hand weakness also somewhat improving Physical Exam 2 Vital Signs: Vital Signs: Last Vital Signs Temp 99.8 F 09/28/23 08:00 Pulse 93 09/28/23 08:00 Resp 20 09/28/23 08:00 BP 136/72 09/28/23 08:00 Pulse Ox 94 09/28/23 08:00 O2 Del Method Room Air 09/28/23 08:00 O2 Flow Rate 2 09/27/23 06:47 BMI result Body Mass Index 29.0 Appearance: Alert.? Oriented X3.?anxious.? cvs: rrr, [id number] . res: clear to auscultation ,no rhonchii or wheezing abd: no rebound or guarding ,nt, bs present. ext pulses present , no cyanosis . neuro: axo3 , left arm and hand discomfort and weakness-with little improving Objective Data Active Medications Acetaminophen (Acetaminophen 325 Mg Tablet) 650 mg PO Q6H PRN PRN Reason: Pain, Mild (Pain Scale 1-3) Last Admin: 09/27/23 00:02 Dose: 650 mg Documented By: LIBRA Amlodipine Besylate (Amlodipine Besylate 5 Mg Tablet) 5 mg PO DAILY [facility]; Protocol Last Admin: 09/28/23 08:52 Dose: 5 mg Documented By: MARIANGEL Benzonatate (Benzonatate 100 Mg Capsule) 100 mg PO TID PRN PRN Reason: Cough Docusate Sodium (Docusate Sodium 100 Mg Capsule) 100 mg PO DAILY PRN PRN Reason: Constipation Heparin Sodium (Porcine) (Heparin Sodium,Porcine 5,000 Unit/Ml Vial) 5,000 unit SUBCUT Q8H [facility] Last Admin: 09/28/23 08:52 Dose: 5,000 unit Documented By: MARIANGEL Sodium Chloride (Ns) 1,000 mls @ 125 mls/hr IVCONT .Q8H [facility] Last Infusion: 09/28/23 05:11 Dose: 100 mls/hr Documented By: CHARLEY Melatonin (Melatonin 3 Mg Tablet) 6 mg PO BEDTIME PRN PRN Reason: Insomnia Last Admin: 09/27/23 00:02 Dose: 6 mg Documented By: LIBRA Nicotine (Nicotine 21 Mg Patch.Td24) 21 mg TRANSDERMA DAILY [facility] Last Admin: 09/28/23 08:53 Dose: Not Given Documented By: MARIANGEL Non-Admin Reason: Patient Refused Omeprazole (Omeprazole 20 Mg Capsule.) 20 mg PO DAILY@0630 [facility] Last Admin: 09/28/23 06:10 Dose: 20 mg Documented By: CHARLEY Ondansetron HCl (Ondansetron Hcl 4 Mg/2 Ml Vial) 4 mg IVPUSH Q8H PRN PRN Reason: Nausea and Vomiting Last Admin: 09/28/23 02:09 Dose: 4 mg Documented By: DAXA Oxycodone HCl (Oxycodone Hcl Immed Release 5 Mg Tablet) 5 mg PO Q4H PRN PRN Reason: Pain, Severe (Pain Scale 7-10) Last Admin: 09/27/23 15:50 Dose: 5 mg Documented By: YONATAN Sodium Chloride (0.9 % Sodium Chloride Flush 3 Ml Syringe) 3 ml IVFLUSH QSHIFT [facility] Last Admin: 09/28/23 08:53 Dose: 3 ml Documented By: MARIANGEL Labs 09/27/23 04:46 09/28/23 05:42 Labs: Laboratory Results - last 24 hr 09/27/23 09/28/23 09/28/23 13:53 05:42 06:11 Hold Purple Top SEE NOTE Anion Gap 12 12 Estim Creat Clear Calc 85.8 108.8 Estimated GFR > 60 > 60 Random Glucose 152 H 106 Calcium 8.2 L D 8.2 L Total Creatine Kinase > 03284 H 43112 H Microbiology Microbiology Results: Microbiology 09/26/23 12:44 Blood Culture - Preliminary Blood - Venous No growth after 24 hours. 09/26/23 12:25 Blood Culture - Preliminary Blood - Venous No growth after 24 hours. Assessment and Plan (1) Cocaine abuse: Status: Acute (2) Acute renal failure: Status: Acute (3) Left hand weakness: Status: Acute (4) Rhabdomyolysis: Status: Acute Plan 53-year-old male with a PMH significant for?HTN, GERD, alcohol use disorder, and polysubstance use disorder who presents to the ED multiple complaints, though mostly concerning for?left upper extremity weakness and numbness. Patient is irritable, easily arousable, and emotionally labile during interview and exam. Patient is often jumping from topic to topic and difficult to get a clear answer from. Rhabdomyolysis CPK 5217-next >[id number] Likely secondary to cocaine, heroin, and fentanyl use continue fluids ns 125 mls/hr moniter bmp and CPK LIZETH seems improved with hydration Likely multifactorial: Secondary to rhabdomyolysis, polysubstance use, dehydration seems improving with hydration Hyperkalemia-improved. Received albuterol, insulin, dextrose, and Lokelma in ED-improved. Follow BMP d/w nephro lizeth, rhabdomyolysis, hyperkalemia, lactic acidosis-changed fluids to Ns@150 ml/her : moniter BMP and CPK. Left arm weakness and numbness Likely secondary to rhabdomyolysis and polysubstance use improving Multiple nonspecific numbness/weakness complaints-? does not fall into specific neuro exam neurology evaluation noted- above possible related to cocaine use.moniter closley/hydrate. Atypical chest pain Troponin elevated and flat secondary to cocaine use Possible secondary to cocaine use, currently no chest pain EKG without significant ischemic changes echocardiogram Monitor on telemetry Alcohol use disorder Patient reports drinking 6-7 beers per week, though appears to drink much more Monitor on CIWA Low threshold for starting phenobarb protocol Polysubstance use disorder Frequent use of cocaine/crack, alcohol, reports using heroin only last night, also positive for fentanyl Addiction medicine consult Emotional lability Patient agitated and emotionally labile during interview and exam Reports having ?severe ADHD? but not on any home meds Reports previous suicide attempt by ODing on heroin Currently denies any SI/HI Psychiatry consult noted -if behaviour agaiattion -willcall back. GERD Continue PPI Full Code DVT Prophylaxis: Lovenox Ongoing hospitalization need for 72-96 hrs for treatment of?severe rhabdomyolysis, LIZETH, and hyperkalemia in the setting of polysubstance use. Patient required hospitalization for aggressive IVF resuscitation, close monitoring of labs and cardiac function, as well as specialist evaluation Quality Stroke Does the patient have a stroke diagnosis?: No VTE Prior VTE?: No VTE Risk Level:: Medical - moderate - high VTE Device Contraindication: Treatment Not Indicated VTE Drug Contraindication: N/A - Med Ordered
[2023-09-28 12:00] VITALS: BP 132/75; PULSE 90; RESP 20; TEMP 36.1; O2SAT 94
[2023-09-28] MEDS: 0.9 % Sodium Chloride 1,000 ML 125 ML IVCONT ×2 (15:36→22:57)
[2023-09-28 16:00] VITALS: BP 125/83; PULSE 96; RESP 20; TEMP 37.7; O2SAT 95
[2023-09-28 19:13] VITALS: BP 128/79; PULSE 94; RESP 20; TEMP 37.6; O2SAT 97
[2023-09-28] MEDS: oxyCODONE HCl Immed Release 5 MG TABLET PO (20:03)
[2023-09-28 23:19] LABS: CDiff Gene PCR POSITIVE (Negative)
[2023-09-29] VITALS: BP 137/84; PULSE 79; RESP 18; TEMP 36.8; O2SAT 97
[2023-09-29] LABS: CDIFF Internal ctrl Dots and bkg OK (V); CDiff Toxin Negative (Negative)
[2023-09-29] MEDS: Heparin Sodium,Porcine 5,000 UNIT/ML VIAL 5000 UNIT SUBCUT ×3 (01:32→16:46)
[2023-09-29 03:13] VITALS: BP 132/93; PULSE 85; RESP 18; TEMP 36.9; O2SAT 96
[2023-09-29] MEDS: Omeprazole 20 MG CAPSULE.DR PO (06:35)
[2023-09-29 06:36] LABS: Anion Gap 11 (12-20); Blood Urea Nitrogen 7 mg/dL (9-16); Calcium 8.2 mg/dL (8.4-10.2); Carbon Dioxide 27 mmol/L (22-29); Chloride 106 mmol/L (96-108); Creatinine Clr Calc Pharmacy 125.3; Estimated Glomerular Filt Rate > 60; Glucose Random 105 mg/dL (60-115); Potassium 3.6 mmol/L (3.3-5.1); Sodium 140 mmol/L (135-145)
[2023-09-29] MEDS: 0.9 % Sodium Chloride 1,000 ML 125 ML IVCONT ×3 (06:36→20:56)
[2023-09-29 07:34] VITALS: BP 151/88; PULSE 79; RESP 16; TEMP 36.6; O2SAT 96
[2023-09-29] MEDS: amLODIPine Besylate 5 MG TABLET PO (07:59)
[2023-09-29] MEDS: 0.9 % Sodium Chloride Flush 3 ML SYRINGE IVFLUSH ×2 (08:00→14:12)
[2023-09-29] MEDS: vancomycin HCL 125 MG CAPSULE PO ×3 (09:41→19:59)
[2023-09-29 12:00] VITALS: BP 133/73; PULSE 82; RESP 18; TEMP 36.8; O2SAT 97
--- NOTE | 2023-09-29 13:23 | P.PNIM_ITS ---
Subjective Subjective Date of Service: 09/29/23 Interval History: Severe rhabdomyolysis, diarrhea possible C diff Review of Systems Patient still significant diarrhea, some abdominal discomfort No nausea or vomiting Physical Exam 2 Vital Signs: Vital Signs: Last Vital Signs Temp 98.3 F 09/29/23 12:00 Pulse 82 09/29/23 12:00 Resp 18 09/29/23 12:00 BP 133/73 09/29/23 12:00 Pulse Ox 97 09/29/23 12:00 O2 Del Method Room Air 09/29/23 12:00 O2 Flow Rate 2 09/27/23 06:47 BMI result Body Mass Index 29.0 Appearance: Alert.? Oriented X3.?anxious.? cvs: [id number], [id number] . res: clear to auscultation ,no rhonchii or wheezing abd: no rebound or guarding ,mild abd soarness , bs present. ext pulses present , no cyanosis . neuro: axo3 , left arm and hand discomfort and weakness-with little improving Objective Data Active Medications Acetaminophen (Acetaminophen 325 Mg Tablet) 650 mg PO Q6H PRN PRN Reason: Pain, Mild (Pain Scale 1-3) Last Admin: 09/27/23 00:02 Dose: 650 mg Documented By: LIBRA Amlodipine Besylate (Amlodipine Besylate 5 Mg Tablet) 5 mg PO DAILY [facility]; Protocol Last Admin: 09/29/23 07:59 Dose: 5 mg Documented By: TU Benzonatate (Benzonatate 100 Mg Capsule) 100 mg PO TID PRN PRN Reason: Cough Docusate Sodium (Docusate Sodium 100 Mg Capsule) 100 mg PO DAILY PRN PRN Reason: Constipation Heparin Sodium (Porcine) (Heparin Sodium,Porcine 5,000 Unit/Ml Vial) 5,000 unit SUBCUT Q8H [facility] Last Admin: 09/29/23 07:59 Dose: 5,000 unit Documented By: TU Sodium Chloride (Ns) 1,000 mls @ 125 mls/hr IVCONT .Q8H [facility] Last Admin: 09/29/23 06:36 Dose: 125 mls/hr Documented By: ANTOIC Melatonin (Melatonin 3 Mg Tablet) 6 mg PO BEDTIME PRN PRN Reason: Insomnia Last Admin: 09/27/23 00:02 Dose: 6 mg Documented By: LIBRA Nicotine (Nicotine 21 Mg Patch.Td24) 21 mg TRANSDERMA DAILY [facility] Last Admin: 09/29/23 08:00 Dose: Not Given Documented By: TU Non-Admin Reason: Patient Refused Omeprazole (Omeprazole 20 Mg Capsule.) 20 mg PO DAILY@0630 [facility] Last Admin: 09/29/23 06:35 Dose: 20 mg Documented By: AGUEDA Ondansetron HCl (Ondansetron Hcl 4 Mg/2 Ml Vial) 4 mg IVPUSH Q8H PRN PRN Reason: Nausea and Vomiting Last Admin: 09/28/23 02:09 Dose: 4 mg Documented By: DAXA Oxycodone HCl (Oxycodone Hcl Immed Release 5 Mg Tablet) 5 mg PO Q4H PRN PRN Reason: Pain, Severe (Pain Scale 7-10) Last Admin: 09/28/23 20:03 Dose: 5 mg Documented By: MARYELLEN Sodium Chloride (0.9 % Sodium Chloride Flush 3 Ml Syringe) 3 ml IVFLUSH QSHIFT [facility] Last Admin: 09/29/23 08:00 Dose: 3 ml Documented By: TU Vancomycin HCl (Vancomycin Hcl 125 Mg Capsule) 125 mg PO Q6H [facility] Last Admin: 09/29/23 09:41 Dose: 125 mg Documented By: TU Labs 09/27/23 04:46 09/29/23 05:53 Labs: Laboratory Results - last 24 hr 09/28/23 09/29/23 22:09 05:53 Hold Purple Top SEE NOTE Anion Gap 11 L Estim Creat Clear Calc 125.3 Estimated GFR > 60 Random Glucose 105 Calcium 8.2 L Total Creatine Kinase 56093 H C. difficile Tox B Gene POSITIVE A* C. difficile Toxin A&B Negative C. difficile Interpret SEE NOTE Microbiology Microbiology Results: Microbiology 09/26/23 12:44 Blood Culture - Preliminary Blood - Venous No growth after 48 hours. 09/26/23 12:25 Blood Culture - Preliminary Blood - Venous No growth after 48 hours. Assessment and Plan (1) Cocaine abuse: Status: Acute (2) Acute renal failure: Status: Acute (3) Left hand weakness: Status: Acute (4) Rhabdomyolysis: Status: Acute Plan 53-year-old male with a PMH significant for?HTN, GERD, alcohol use disorder, and polysubstance use disorder who presents to the ED multiple complaints, though mostly concerning for?left upper extremity weakness and numbness. Patient is irritable, easily arousable, and emotionally labile during interview and exam. Patient is often jumping from topic to topic and difficult to get a clear answer from. Rhabdomyolysis CPK 5217-next >[id number] Likely secondary to cocaine, heroin, and fentanyl use continue fluids ns 125 mls/hr moniter bmp and CPK LIZETH seems improved with hydration Likely multifactorial: Secondary to rhabdomyolysis, polysubstance use, dehydration improved with hydration possible C diff related diarrhae: he said he had diarrhae at home also added po vanco id eval. Hyperkalemia-improved. Received albuterol, insulin, dextrose, and Lokelma in ED-improved. Follow BMP d/w nephro lizeth, rhabdomyolysis, hyperkalemia, lactic acidosis-changed fluids : moniter BMP and CPK. Left arm weakness and numbness Likely secondary to rhabdomyolysis and polysubstance use improving Multiple nonspecific numbness/weakness complaints-? does not fall into specific neuro exam neurology evaluation noted- above possible related to cocaine use.moniter closley/hydrate. Atypical chest pain Troponin elevated and flat secondary to cocaine use Possible secondary to cocaine use, currently no chest pain EKG without significant ischemic changes echocardiogram: ef 69% ,no wma Monitor on telemetry Alcohol use disorder Patient reports drinking 6-7 beers per week, though appears to drink much more Monitor on CIWA Low threshold for starting phenobarb protocol Polysubstance use disorder Frequent use of cocaine/crack, alcohol, reports using heroin only last night, also positive for fentanyl Addiction medicine consult Emotional lability Patient agitated and emotionally labile during interview and exam Reports having ?severe ADHD? but not on any home meds Reports previous suicide attempt by ODing on heroin Currently denies any SI/HI Psychiatry consult noted -if behaviour agaiation -willcall back. GERD Continue PPI Full Code DVT Prophylaxis: Lovenox Ongoing hospitalization need for 72-96 hrs for treatment of?severe rhabdomyolysis, LIZETH, and hyperkalemia in the setting of polysubstance use. Patient required hospitalization for aggressive IVF resuscitation, close monitoring of labs and cardiac function, as well as specialist evaluation,also need monitering and antibiotics for c diff diarrhae. Quality Stroke Does the patient have a stroke diagnosis?: No VTE Prior VTE?: No VTE Risk Level:: Medical - moderate - high VTE Device Contraindication: Treatment Not Indicated VTE Drug Contraindication: N/A - Med Ordered
[2023-09-29 15:23] VITALS: BP 150/95; PULSE 79; RESP 18; TEMP 37.1; O2SAT 97
[2023-09-29 19:41] VITALS: BP 142/88; PULSE 79; RESP 18; TEMP 37; O2SAT 96
[2023-09-30] VITALS (7 sets, daily range): BP systolic 125–164; BP diastolic 70–95; PULSE 72–99; RESP 19–20; TEMP 36.4–37.1; O2SAT 94–97
[2023-09-30] MEDS: oxyCODONE HCl Immed Release 5 MG TABLET PO ×3 (00:39→19:56)
[2023-09-30] MEDS: Heparin Sodium,Porcine 5,000 UNIT/ML VIAL 5000 UNIT SUBCUT ×2 (00:40→14:57)
[2023-09-30] MEDS: vancomycin HCL 125 MG CAPSULE PO ×4 (02:51→19:52)
[2023-09-30] MEDS: 0.9 % Sodium Chloride 1,000 ML 125 ML IVCONT ×3 (05:05→19:52)
[2023-09-30] MEDS: Omeprazole 20 MG CAPSULE.DR PO (05:44)
[2023-09-30 06:08] LABS: Anion Gap 12 (12-20); Blood Urea Nitrogen 11 mg/dL (9-16); Calcium 8.2 mg/dL (8.4-10.2); Carbon Dioxide 26 mmol/L (22-29); Chloride 107 mmol/L (96-108); Estimated Glomerular Filt Rate > 60; Glucose Random 102 mg/dL (60-115); Potassium 3.7 mmol/L (3.3-5.1); Sodium 141 mmol/L (135-145)
[2023-09-30] MEDS: 0.9 % Sodium Chloride Flush 3 ML SYRINGE IVFLUSH ×2 (08:07→14:57)
[2023-09-30] MEDS: amLODIPine Besylate 5 MG TABLET PO (08:07)
--- NOTE | 2023-09-30 10:40 | MHC.CM.PN ---
PT and OT rec home services, pt said he does have transportation to go to outpatient, and requested it be in [place], as he lives in [place]. There are rehab outpt services at [facility], and Pt has a BS based PCP. CM gave info to pt. for this facility.
--- NOTE | 2023-09-30 10:46 | HO.PM.IMPN ---
Subjective Subjective Date of Service: 09/30/23 Interval History: rhabdomylysis Review of Systems body soarness improving moving his hand better slowly says has neck swellin-on exam seems fine ,? minimal Physical Exam Vital Signs: Vital Signs: Last Vital Signs Temp 98.8 F 09/30/23 07:43 Pulse 87 09/30/23 09:21 Resp 20 09/30/23 07:43 BP 137/91 H 09/30/23 07:43 Pulse Ox 94 09/30/23 07:43 O2 Del Method Room Air 09/30/23 07:43 O2 Flow Rate 2 09/27/23 06:47 BMI result Body Mass Index 29.0 Appearance: Alert.? Oriented X3.?anxious.? cvs: rrr, [id number] . res: clear to auscultation ,no rhonchii or wheezing abd: no rebound or guarding ,mild abd soarness , bs present. ext pulses present , no cyanosis . neuro: axo3 , left arm and hand discomfort and weakness-with little improving Objective Data Active Medications Acetaminophen (Acetaminophen 325 Mg Tablet) 650 mg PO Q6H PRN PRN Reason: Pain, Mild (Pain Scale 1-3) Last Admin: 09/27/23 00:02 Dose: 650 mg Documented By: LIBRA Amlodipine Besylate (Amlodipine Besylate 5 Mg Tablet) 5 mg PO DAILY [facility]; Protocol Last Admin: 09/30/23 08:07 Dose: 5 mg Documented By: TU Benzonatate (Benzonatate 100 Mg Capsule) 100 mg PO TID PRN PRN Reason: Cough Docusate Sodium (Docusate Sodium 100 Mg Capsule) 100 mg PO DAILY PRN PRN Reason: Constipation Heparin Sodium (Porcine) (Heparin Sodium,Porcine 5,000 Unit/Ml Vial) 5,000 unit SUBCUT Q8H [facility] Last Admin: 09/30/23 08:11 Dose: Not Given Documented By: TU Non-Admin Reason: Patient Refused Sodium Chloride (Ns) 1,000 mls @ 125 mls/hr IVCONT .Q8H [facility] Last Admin: 09/30/23 05:05 Dose: 125 mls/hr Documented By: TED Melatonin (Melatonin 3 Mg Tablet) 6 mg PO BEDTIME PRN PRN Reason: Insomnia Last Admin: 09/27/23 00:02 Dose: 6 mg Documented By: LIBRA Nicotine (Nicotine 21 Mg Patch.Td24) 21 mg TRANSDERMA DAILY [facility] Last Admin: 09/30/23 08:08 Dose: Not Given Documented By: TU Non-Admin Reason: Patient Refused Omeprazole (Omeprazole 20 Mg Capsule.) 20 mg PO DAILY@0630 [facility] Last Admin: 09/30/23 05:44 Dose: 20 mg Documented By: TED Ondansetron HCl (Ondansetron Hcl 4 Mg/2 Ml Vial) 4 mg IVPUSH Q8H PRN PRN Reason: Nausea and Vomiting Last Admin: 09/28/23 02:09 Dose: 4 mg Documented By: DAXA Oxycodone HCl (Oxycodone Hcl Immed Release 5 Mg Tablet) 5 mg PO Q4H PRN PRN Reason: Pain, Severe (Pain Scale 7-10) Last Admin: 09/30/23 08:08 Dose: 5 mg Documented By: TU Sodium Chloride (0.9 % Sodium Chloride Flush 3 Ml Syringe) 3 ml IVFLUSH QSHIFT [facility] Last Admin: 09/30/23 08:07 Dose: 3 ml Documented By: TU Vancomycin HCl (Vancomycin Hcl 125 Mg Capsule) 125 mg PO Q6H [facility] Last Admin: 09/30/23 08:08 Dose: 125 mg Documented By: TU Labs 09/27/23 04:46 09/30/23 05:42 Labs: Laboratory Results - last 24 hr 09/30/23 05:42 Anion Gap 12 Estim Creat Clear Calc 132.0 Estimated GFR > 60 Random Glucose 102 Calcium 8.2 L Total Creatine Kinase 7169 H Assessment and Plan (1) Cocaine abuse: Status: Acute (2) Acute renal failure: Status: Acute (3) Left hand weakness: Status: Acute (4) Rhabdomyolysis: Status: Acute Plan 53-year-old male with a PMH significant for?HTN, GERD, alcohol use disorder, and polysubstance use disorder who presents to the ED multiple complaints, though mostly concerning for?left upper extremity weakness and numbness. Patient is irritable, easily arousable, and emotionally labile during interview and exam. Patient is often jumping from topic to topic and difficult to get a clear answer from. Rhabdomyolysis CPK 5217-next >[id number] Likely secondary to cocaine, heroin, and fentanyl use continue fluids ns 125 mls/hr moniter bmp and CPK AMANDEEP seems improved with hydration Likely multifactorial: Secondary to rhabdomyolysis, polysubstance use, dehydration improved with hydration possible C diff related diarrhae: he said he had diarrhae at home also added po vanco id eval. Hyperkalemia-improved. Received albuterol, insulin, dextrose, and Lokelma in ED-improved. Follow BMP d/w nephro amandeep, rhabdomyolysis, hyperkalemia, lactic acidosis-changed fluids : moniter BMP and CPK. Left arm weakness and numbness Likely secondary to rhabdomyolysis and polysubstance use improving Multiple nonspecific numbness/weakness complaints-? does not fall into specific neuro exam neurology evaluation noted- above possible related to cocaine use.moniter closley/hydrate. Atypical chest pain Troponin elevated and flat secondary to cocaine use Possible secondary to cocaine use, currently no chest pain EKG without significant ischemic changes echocardiogram: ef 69% ,no wma Monitor on telemetry Alcohol use disorder Patient reports drinking 6-7 beers per week, though appears to drink much more Monitor on CIWA Low threshold for starting phenobarb protocol Polysubstance use disorder Frequent use of cocaine/crack, alcohol, reports using heroin only last night, also positive for fentanyl Addiction medicine consult Emotional lability Patient agitated and emotionally labile during interview and exam Reports having ?severe ADHD? but not on any home meds Reports previous suicide attempt by ODing on heroin Currently denies any SI/HI Psychiatry consult noted -if behaviour agaiation -willcall back. GERD Continue PPI Full Code DVT Prophylaxis: Lovenox Ongoing hospitalization need for treatment of?severe rhabdomyolysis, AMANDEEP, and hyperkalemia in the setting of polysubstance use. Patient required hospitalization for aggressive IVF resuscitation, close monitoring of labs and cardiac function, as well as specialist evaluation,also need monitering and antibiotics for c diff diarrhae. Quality Stroke Does the patient have a stroke diagnosis?: No VTE Prior VTE?: No VTE Risk Level:: Medical - moderate - high VTE Device Contraindication: Treatment Not Indicated VTE Drug Contraindication: N/A - Med Ordered
--- NOTE | 2023-09-30 12:58 | P.CDIM_ITS ---
PROVIDER RESPONSE TEXT: To clarify, the appropriate diagnosis supported by the clinical indicators: Acute QUERY TEXT: PHYSICIAN'S DOCUMENTATION REQUEST Date of Query: 09/30/2023 08:20 AM EST Patient Name: AALIYAH FAROOQ Admit Date: 09/26/2023 Dear Osiel Lopez, A review of the medical record indicates additional documentation may be needed. Please review below and update the documentation accordingly. Clinical Indicators: Per Hospitalist Progress Note 09/29/23: Lactic Acidosis LA on 09/26/23: 2.7 IVF Clarify which of the following accurately represents the acuity of the Lactic Acidosis. Possible options might include: Acute Acute on chronic Compensated Chronic stable condition Remission Other (explain) Clinically unable to determine (explain) Thank you, Dinora eBth RN Use of terms such as suspected, likely, concern for, or probable (associated with a specific diagnosi s that is being evaluated, monitored, or treated as if it exists) are acceptable and can be coded in the inpatient se tting, when documented at the time of discharge. Please use your independent medical judgment in providing your response. THIS QUERY IS PART OF THE PERMANENT MEDICAL RECORD
--- NOTE | 2023-09-30 15:47 | P.CNID_ITS ---
History of Present Illness Data of Consult Service Date: 09/30/23 Requesting physician: Osiel Lopez Primary Care Provider: DO GARRY Vega Reason for consult: left hand weakness He presents with swelling eyes and left hand weakness. He says he is homeless. He did take his mothers Penicillin by report for hand redness. He has seen Neurology and thought issues due to elevated CK He has diarrhea and positive Cdiff PCR and negative toxin. He takes heroin and alcohol. Review of Systems 2 Review of Systems: Yes all other systems are reviewed and are negative [facility] Past Medical History Medical History (Updated 09/30/23 @ 15:52 by Ofelia Alexander MD) Clostridioides difficile diarrhea Alcohol use disorder Hypertension No known health problems Family History Family history: reviewed and not pertinent Social History Social History Household Members: Significant Other Housing: House Do you presently have visiting nurse or other home services: No Alcohol intake: current Alcohol type: beer Comment: Patient refuses alarms Patient Tobacco Use Status: Current everyday Tobacco user Tobacco use type: Cigarette Cigarette Packs Per Day: 1 Cigarettes Per Day: 20.0 e-Cigarette/Vaping Use: Currently Using Substance Use Type: Crack/Cocaine service: No Meds Allergies Allergy/AdvReac Type Severity Reaction Status Date / Time No Known Allergies Allergy Verified 03/24/21 22:52 Active Medications: Current Medications Acetaminophen (Acetaminophen 325 Mg Tablet) 650 mg PO Q6H PRN PRN Reason: Pain, Mild (Pain Scale 1-3) Last Admin: 09/27/23 00:02 Dose: 650 mg Amlodipine Besylate (Amlodipine Besylate 5 Mg Tablet) 5 mg PO DAILY [facility]; Protocol Last Admin: 09/30/23 08:07 Dose: 5 mg Benzonatate (Benzonatate 100 Mg Capsule) 100 mg PO TID PRN PRN Reason: Cough Docusate Sodium (Docusate Sodium 100 Mg Capsule) 100 mg PO DAILY PRN PRN Reason: Constipation Heparin Sodium (Porcine) (Heparin Sodium,Porcine 5,000 Unit/Ml Vial) 5,000 unit SUBCUT Q8H [facility] Last Admin: 09/30/23 14:57 Dose: 5,000 unit Sodium Chloride (Ns) 1,000 mls @ 125 mls/hr IVCONT .Q8H [facility] Last Admin: 09/30/23 12:05 Dose: 125 mls/hr Melatonin (Melatonin 3 Mg Tablet) 6 mg PO BEDTIME PRN PRN Reason: Insomnia Last Admin: 09/27/23 00:02 Dose: 6 mg Nicotine (Nicotine 21 Mg Patch.Td24) 21 mg TRANSDERMA DAILY [facility] Last Admin: 09/30/23 08:08 Dose: Not Given Omeprazole (Omeprazole 20 Mg Capsule.Dr) 20 mg PO DAILY@0630 [facility] Last Admin: 09/30/23 05:44 Dose: 20 mg Ondansetron HCl (Ondansetron Hcl 4 Mg/2 Ml Vial) 4 mg IVPUSH Q8H PRN PRN Reason: Nausea and Vomiting Last Admin: 09/28/23 02:09 Dose: 4 mg Oxycodone HCl (Oxycodone Hcl Immed Release 5 Mg Tablet) 5 mg PO Q4H PRN PRN Reason: Pain, Severe (Pain Scale 7-10) Last Admin: 09/30/23 08:08 Dose: 5 mg Sodium Chloride (0.9 % Sodium Chloride Flush 3 Ml Syringe) 3 ml IVFLUSH QSHIFT [facility] Last Admin: 09/30/23 14:57 Dose: 3 ml Vancomycin HCl (Vancomycin Hcl 125 Mg Capsule) 125 mg PO Q6H [facility] Last Admin: 09/30/23 14:56 Dose: 125 mg Home Medications Medication Instructions Recorded Confirmed Last Taken Type amlodipine 5 mg tablet 5 mg PO DAILY 09/26/23 09/26/23 09/24/23 History omeprazole 20 mg capsule,delayed 20 mg PO DAILY indigestion 09/26/23 09/26/23 09/24/23 History release Physical Exam 2 Vital Signs: Vital Signs: Last Vital Signs Temp 98.4 F 09/30/23 15:15 Pulse 99 09/30/23 15:15 Resp 20 09/30/23 15:15 BP 125/70 09/30/23 15:15 Pulse Ox 97 09/30/23 15:15 O2 Del Method Room Air 09/30/23 15:15 O2 Flow Rate 2 09/27/23 06:47 BMI result Body Mass Index 29.0 Const: General: cooperative HEENT: Head: Yes normal to inspection Face and sinus: Yes normal facial exam Mouth: Normal oral and palatal mucosa present Teeth and gingiva: d entition normal Eyes: General: appearance normal, both eyes and all related structures P upils: Equal, round and reactive pupils present Resp: Effort & Inspection: normal respiratory effort Cardio: Rate: regular rate Rhythm: regular rhythm GI: Palpation (GI): Soft to palpation and nontender : General: Yes no CVA tenderness Back/Spine/Pelvis: Back: no CVA tenderness Skin: General skin exam: no rashes or lesions noted Neuro: General: moves all extremities Cranial nerves: Yes Equal, round and reactive pupils present Extrem: Other: swelling eyes swelling hands and legs,no redness Psych: Appearance: grossly normal Results Labs 09/27/23 04:46 09/30/23 05:42 Labs: BMP 09/30/23 05:42 Sodium 141 Potassium 3.7 Chloride 107 Carbon Dioxide 26 BUN 11 Creatinine 0.75 Calcium 8.2 L Cardiac Enzymes 09/30/23 Range/Units 05:42 Total Creatine Kinase 7169 H (38-174) U/L Microbiology Microbiology Results: Microbiology 09/26/23 12:44 Blood - Venous Blood Culture - Preliminary No growth after 48 hours. 09/26/23 12:25 Blood - Venous Blood Culture - Preliminary No growth after 48 hours. Assessment and Plan (1) Rhabdomyolysis: Qualifiers: Rhabdomyolysis type: non-traumatic Qualified Code(s): M62.82 - Rhabdomyolysis Status: Acute Hand cellulitis resolved (2) Acute urinary retention: Status: Acute (3) Cocaine abuse: Status: Acute (4) Opiate abuse, continuous: Status: Acute (5) Clostridioides difficile diarrhea: Status: Acute Plan 10 d po Vancomycin 125 qid
[2023-09-30] MEDS: Acetaminophen 325 MG TABLET 650 MG PO (19:05)
--- NOTE | 2023-09-30 20:30 | P.PNNP_ITS ---
Subjective Subjective Date of Service: 09/30/23 Interval history: Events noted CPK is trending down Physical Exam 2 Vital Signs: Vital Signs: Last Vital Signs Temp 98.5 F 09/30/23 20:00 Pulse 76 09/30/23 20:00 Resp 19 09/30/23 20:00 BP 148/85 H 09/30/23 20:00 Pulse Ox 97 09/30/23 20:00 O2 Del Method Room Air 09/30/23 20:00 O2 Flow Rate 2 09/27/23 06:47 BMI result Body Mass Index 29.0 Const: General: comfortable and no acute distress Nutritional Appearance: w ell nourished Orientation/consciousness: patient oriented x3 HEENT: Head: No normal to inspection and Yes normocephalic Mouth: Normal oral and palatal mucosa present and moist mucous membranes Eyes: EOM: EOMs intact bilaterally Neck: Neck: Yes supple and Yes no JVD Resp: Auscultation: clear to auscultation bilaterally, no rales and rub present Cardio: Jugular venous distension: no JVD Palpation: no palpable S3 and no palpable S4 Rate: regular rate Heart sounds: no rubs GI: Palpation (GI): Soft to palpation and nontender Percussion: No Fluid wave present Auscultation: normal bowel sounds : General: Yes no CVA tenderness Back/Spine/Pelvis: Back: no CVA tenderness Skin: General skin exam: no rashes or lesions noted Neuro: General: patient oriented x3 and moves all extremities Extrem: General: Yes no pedal edema and No clubbing Objective Data Labs 09/27/23 04:46 09/30/23 05:42 Labs: Laboratory Results - last 24 hr 09/30/23 05:42 Sodium 141 Potassium 3.7 Chloride 107 Carbon Dioxide 26 Anion Gap 12 BUN 11 Creatinine 0.75 Estim Creat Clear Calc 132.0 Estimated GFR > 60 Random Glucose 102 Calcium 8.2 L Total Creatine Kinase 7169 H Microbiology Microbiology Results: Microbiology 09/26/23 12:44 Blood - Venous Blood Culture - Preliminary No growth after 48 hours. 09/26/23 12:25 Blood - Venous Blood Culture - Preliminary No growth after 48 hours. Procedures Date of Service Date of Service: 09/30/23 Assessment & Plan Assessment and plan (1) Acute renal failure: Status: Acute (2) Rhabdomyolysis: Status: Acute (3) Cocaine abuse: Status: Acute Plan AMANDEEP resolved CPK is trending down C/W current supportive care for now Shall stop following actively. Thanks you Time Spent With Patient Time: Total time managing care of this patient today ____ minutes. Progress Note: Quality Stroke Does the patient have a stroke diagnosis?: No
[2023-10-01] VITALS (7 sets, daily range): BP systolic 122–160; BP diastolic 88–98; PULSE 77–101; RESP 18–20; TEMP 36.2–37.3; O2SAT 96–99
[2023-10-01] MEDS: vancomycin HCL 125 MG CAPSULE PO ×4 (03:32→20:52)
[2023-10-01] MEDS: 0.9 % Sodium Chloride 1,000 ML 125 ML IVCONT ×3 (03:32→20:57)
[2023-10-01] MEDS: oxyCODONE HCl Immed Release 5 MG TABLET PO ×4 (03:38→20:54)
[2023-10-01] MEDS: Omeprazole 20 MG CAPSULE.DR PO (03:38)
[2023-10-01 09:13] LABS: Anion Gap 12 (12-20); Blood Urea Nitrogen 14 mg/dL (9-16); Calcium 8.8 mg/dL (8.4-10.2); Carbon Dioxide 27 mmol/L (22-29); Chloride 106 mmol/L (96-108); Creatinine Clr Calc Pharmacy 137.5; Estimated Glomerular Filt Rate > 60; Glucose Random 99 mg/dL (60-115); Potassium 4.1 mmol/L (3.3-5.1); Sodium 141 mmol/L (135-145)
[2023-10-01] MEDS: amLODIPine Besylate 5 MG TABLET PO (09:24)
--- NOTE | 2023-10-01 15:06 | P.PNIM_ITS ---
Subjective Subjective Date of Service: 10/01/23 Interval History: Still weakness in the arm, cpk has trended down Physical Exam 2 Vital Signs: Vital Signs: Last Vital Signs Temp 97.7 F 10/01/23 10:54 Pulse 101 H 10/01/23 10:54 Resp 20 10/01/23 10:54 BP 122/91 H 10/01/23 10:54 Pulse Ox 97 10/01/23 10:54 O2 Del Method Room Air 10/01/23 10:54 O2 Flow Rate 2 09/27/23 06:47 BMI result Body Mass Index 29.0 Appearance: Alert.? Oriented X3.?anxious.? cvs: rrr, [id number] . res: clear to auscultation ,no rhonchii or wheezing abd: no rebound or guarding ,mild abd soarness , bs present. ext pulses present , no cyanosis . neuro: axo3 , left arm weakness, improving Objective Data Active Medications Acetaminophen (Acetaminophen 325 Mg Tablet) 650 mg PO Q6H PRN PRN Reason: Pain, Mild (Pain Scale 1-3) Last Admin: 09/30/23 19:05 Dose: 650 mg Documented By: CHARLEY Amlodipine Besylate (Amlodipine Besylate 5 Mg Tablet) 5 mg PO DAILY [facility]; Protocol Last Admin: 10/01/23 09:24 Dose: 5 mg Documented By: FLAKITO Benzonatate (Benzonatate 100 Mg Capsule) 100 mg PO TID PRN PRN Reason: Cough Docusate Sodium (Docusate Sodium 100 Mg Capsule) 100 mg PO DAILY PRN PRN Reason: Constipation Heparin Sodium (Porcine) (Heparin Sodium,Porcine 5,000 Unit/Ml Vial) 5,000 unit SUBCUT Q8H [facility] Last Admin: 10/01/23 09:23 Dose: Not Given Documented By: FLAKITO Non-Admin Reason: Patient Refused Sodium Chloride (Ns) 1,000 mls @ 125 mls/hr IVCONT .Q8H [facility] Last Admin: 10/01/23 13:37 Dose: 125 mls/hr Documented By: FLAKITO Melatonin (Melatonin 3 Mg Tablet) 6 mg PO BEDTIME PRN PRN Reason: Insomnia Last Admin: 09/27/23 00:02 Dose: 6 mg Documented By: LIBRA Nicotine (Nicotine 21 Mg Patch.Td24) 21 mg TRANSDERMA DAILY [facility] Last Admin: 10/01/23 09:24 Dose: Not Given Documented By: FLAKITO Non-Admin Reason: Patient Refused Omeprazole (Omeprazole 20 Mg Capsule.) 20 mg PO DAILY@0630 [facility] Last Admin: 10/01/23 03:38 Dose: 20 mg Documented By: CARMELO Ondansetron HCl (Ondansetron Hcl 4 Mg/2 Ml Vial) 4 mg IVPUSH Q8H PRN PRN Reason: Nausea and Vomiting Last Admin: 09/28/23 02:09 Dose: 4 mg Documented By: DAXA Oxycodone HCl (Oxycodone Hcl Immed Release 5 Mg Tablet) 5 mg PO Q4H PRN PRN Reason: Pain, Severe (Pain Scale 7-10) Last Admin: 10/01/23 09:30 Dose: 5 mg Documented By: FLAKITO Sodium Chloride (0.9 % Sodium Chloride Flush 3 Ml Syringe) 3 ml IVFLUSH QSHIFT [facility] Last Admin: 10/01/23 09:25 Dose: Not Given Documented By: FLAKITO Non-Admin Reason: IV Running Vancomycin HCl (Vancomycin Hcl 125 Mg Capsule) 125 mg PO Q6H [facility] Last Admin: 10/01/23 09:24 Dose: 125 mg Documented By: FLAKITO Labs 09/27/23 04:46 10/01/23 07:43 Labs: Laboratory Results - last 24 hr 10/01/23 07:43 Hold Purple Top SEE NOTE Anion Gap 12 Estim Creat Clear Calc 137.5 Estimated GFR > 60 Random Glucose 99 Calcium 8.8 D Total Creatine Kinase 2310 H Microbiology Microbiology Results: Microbiology 09/26/23 12:44 Blood Culture - Final Blood - Venous No growth after 5 days. 09/26/23 12:25 Blood Culture - Final Blood - Venous No growth after 5 days. 09/30/23 14:00 Urine Culture - Final Urine clean catch No growth. Assessment and Plan (1) Cocaine abuse: Status: Acute (2) Acute renal failure: Status: Acute (3) Left hand weakness: Status: Acute (4) Rhabdomyolysis: Status: Acute Plan 53-year-old male with a PMH significant for?HTN, GERD, alcohol use disorder, and polysubstance use disorder who presents to the ED multiple complaints, though mostly concerning for?left upper extremity weakness and numbness. Patient is irritable, easily arousable, and emotionally labile during interview and exam. Patient is often jumping from topic to topic and difficult to get a clear answer from. Rhabdomyolysis CPK 5217-next >[id number] Likely secondary to cocaine, heroin, and fentanyl use continue fluids ns 125 mls/hr moniter bmp and CPK LIZETH--pre renal azotemia, resolved with IVF possible C diff related diarrhae. ID recommends PO vanco x 10 days HypErkalemia--likely realted to rhabdo and has resolved Left arm weakness and numbness Likely secondary to rhabdomyolysis and polysubstance use improving Multiple nonspecific numbness/weakness complaints-? does not fall into specific neuro exam neurology evaluation noted- above possible related to cocaine use.moniter closley/hydrate. Atypical chest pain Troponin elevated and flat secondary to cocaine use Possible secondary to cocaine use, currently no chest pain EKG without significant ischemic changes echocardiogram: ef 69% ,no wma Monitor on telemetry Alcohol use disorder Patient reports drinking 6-7 beers per week, though appears to drink much more Monitor on CIWA Low threshold for starting phenobarb protocol Polysubstance use disorder Frequent use of cocaine/crack, alcohol, reports using heroin only last night, also positive for fentanyl Addiction medicine consult Emotional lability Patient agitated and emotionally labile during interview and exam Reports having ?severe ADHD? but not on any home meds Reports previous suicide attempt by ODing on heroin Currently denies any SI/HI Psychiatry consult noted -if behaviour agaiation -willcall back. GERD Continue PPI Full Code DVT Prophylaxis: Lovenox need for inpt: rhabdo, lizeth been trated with IV Quality Stroke Does the patient have a stroke diagnosis?: No VTE Prior VTE?: No VTE Risk Level:: Medical - moderate - high VTE Device Contraindication: Treatment Not Indicated VTE Drug Contraindication: N/A - Med Ordered
[2023-10-01] MEDS: Acetaminophen 325 MG TABLET 650 MG PO (15:47)
[2023-10-01] MEDS: Heparin Sodium,Porcine 5,000 UNIT/ML VIAL 5000 UNIT SUBCUT (16:50)
[2023-10-02] VITALS: BP 140/70; PULSE 76; RESP 18; TEMP 37.1; O2SAT 96
[2023-10-02] MEDS: vancomycin HCL 125 MG CAPSULE PO ×2 (02:05→09:14)
[2023-10-02] MEDS: Acetaminophen 325 MG TABLET 650 MG PO (02:08)
[2023-10-02] MEDS: 0.9 % Sodium Chloride 1,000 ML 125 ML IVCONT (03:28)
[2023-10-02 03:44] VITALS: BP 142/68; PULSE 66; RESP 20; TEMP 37.2; O2SAT 97
[2023-10-02] MEDS: Omeprazole 20 MG CAPSULE.DR PO (06:09)
[2023-10-02 07:00] VITALS: BP 147/91; PULSE 76; RESP 18; TEMP 36.3; O2SAT 96
[2023-10-02] MEDS: amLODIPine Besylate 5 MG TABLET PO (09:14)
[2023-10-02] MEDS: 0.9 % Sodium Chloride Flush 3 ML SYRINGE IVFLUSH (09:14)
[2023-10-02] MEDS: Nicotine 21 MG PATCH.TD24 TRANSDERMA (09:15)
--- NOTE | 2023-10-02 11:03 | P.DS_ITS ---
DS: Providers Provider Date of Service: 10/02/23 Date of admission: 09/26/23 16:41 Primary care physician: Yazan Mendiola DO Consults: 09/26/23 15:45 Addiction Medicine Stat Consulting Provider: Addiction [facility]ing Reason for consultation: getting admitted snorts heroin and cocaine positive Has provider been notified: No 09/26/23 16:50 Consult to Neurology Routine Consulting Provider: [facility] Reason for consultation: Left upper extremity weakness; RLE weakness Consult to Psychiatry Routine Consulting Provider: Psych [facility] Reason for consultation: Pt w/polysub use, ADHD, emotionally labile, previous SI, denies SI current 09/27/23 08:07 Consult to Nephrology Routine Consulting Provider: [facility] [facility] Reason for consultation: severe rhabdomylysis /cocaine use,lizeth Has provider been notified: No 09/29/23 08:46 Consult to Infectious Diseases Routine Consulting Provider: [facility] [place] [facility] Reason for consultation: Cdiff Has provider been notified: No DS: Diagnosis Discharge Diagnosis (1) Cocaine abuse: Status: Acute (2) Acute renal failure: Status: Acute (3) Left hand weakness: Status: Acute (4) Rhabdomyolysis: Status: Acute DS: Summary Status at Discharge Cognitive/behavioral status at discharge: admission hpi Chief Complaint: Left arm numbness Pt is a 53-year-old male with a PMH significant for?HTN, GERD, alcohol use disorder, and polysubstance use disorder who presents to the ED multiple complaints, though mostly concerning for?left upper extremity weakness and numbness. Patient is irritable, easily arousable, and emotionally labile during interview and exam. Patient is often jumping from topic to topic and difficult to get a clear answer from. Patient denies significant history of heroin use, but states that last night he sniffed ?just a little line?. This morning when he woke up his left felt weak and numb. Was unable to open or close his hand. Patient also complains that he is having difficulty standing or walking because his right leg ?feels like rubber? or ?like a fake leg? and also complains of left ankle pain where he sprained it some time ago. Patient apparently has been ?losing time? and is unsure when symptoms began. Also complains of central chest pain that has been ongoing for the past month. Finds it difficult to describe exactly what it feels like, but states it feels like there is ?something moving around in his chest? and ?like my arteries are clogged . Reports feeling it most when his dog steps on his chest. Patient denies significant use of heroin except for 1 time when he attempted to commit suicide by overdosing. Patient currently denies SI/HI. Initially denies cocaine use, but eventually reports smoking crack cocaine around once a week. Also reports smoking 1 pack of cigarettes daily and drinking 6-7 beers a week. However, patient states he did not eat or drink anything yesterday but spent most of his time at the bar. In the ED pt was HR 99 with, tachypnea of 23, compressive slightly hypertensive at 147/94. Labs were significant for leukocytosis 18.9, potassium 7.1 with repeat 4.3, BUN 29, creatinine 3.14, lactic acid 2.7 with repeat 4.2, AST 94, ALT 44, CPK 5217, troponin 114.5 with repeat 108.2. UA negative for UTI. Tested negative for COVID and influenza a and B. will CT of abdomen and pelvis found no acute process. CT of chest found platelike atelectasis in the lingula and both lung bases. CT of head found no acute intracranial hemorrhage, skull fracture, space-occupying lesion, or acute cerebral infarction. EKG demonstrated normal sinus rhythm with RBBB. Pt was treated with morphine, ceftriaxone, ondansetron, insulin, dextrose, Lokelma, albuterol, and lidocaine. Pt will be admitted to the hospital for treatment and further evaluation of LIZETH, rhabdomyolysis, and hyperkalemia in the setting of polysubstance use. Hospital course: The patient presented with weakness in the left arm upon waking, appearing to have slept on the arm for a prolonged period of time. Stroke was ruled out with a CT scan of the head. He had rhabdomyolysis with a CPK level of 5000, consistent with prolonged lying down. He also had acute kidney injury (LIZETH), a mild increase in troponin, and acute renal failure with a creatinine level of 3.14. He was admitted and evaluated by a neurologist who believed his symptoms were likely related to cocaine-induced rhabdomyolysis. His management consisted of IV hydration, leading to resolution of renal failure and a trending down of CPK levels. As for the weakness in the arm, his function continues to improve daily, and physical therapy (PT) and occupational therapy (OT) have been working with him. It is recommended that he participate in outpatient PT. Time Attestation Discharge coordination time: Greater than 30 minutes Quality: Safe Use of Opioids Does Pt have an Active Cancer Diagnosis on the Problem List?: No Quality: Stroke Does the patient have a stroke diagnosis?: No Physical Exam Vital Signs: Vital Signs: Last Vital Signs Temp 97.3 F 10/02/23 07:00 Pulse 76 10/02/23 07:00 Resp 18 10/02/23 07:00 BP 147/91 H 10/02/23 07:00 Pulse Ox 96 10/02/23 07:00 O2 Del Method Room Air 10/02/23 07:00 O2 Flow Rate 2 09/27/23 06:47 BMI result Body Mass Index 29.0 Discharge Plan Discharge Anticipated Discharge Date/Time: 10/02/23 11:10 Patient Disposition: Home Health Service Discharge Diagnosis: Rhabdomylosis, renal failure, Left arm weakness Referrals: Occupational Rehab - [facility] [place] [Outside] - 1 Week (Left arm weakness) Yazan Mendiola DO [Primary Care Provider] - 1 Week Discharge Medications: Continued amlodipine 5 mg tablet 5 mg PO DAILY omeprazole 20 mg capsule,delayed release(DR/EC) 20 mg PO DAILY Discharge Orders: Discharge Order (Routine); Ordered 10/02/23 Ordered By: Alvarez Moreno Diet: Advance to usual diet Activity on Discharge: As tolerated Stand Alone Forms: Patient Portal Discharge page Care Plan Goals: Full recovery from arm weakness Health Concerns: Left arm weakness renal failure rhabdomylosis Plan of Treatment: Avoid substance use drink plenety of fluid Participate in OT, call to arrange for follow up follow up with your Docor in a week Assessment: see above
--- NOTE | 2023-10-02 11:43 | MHC.CM.PN ---
Second IMM, 10/02/23, Pt has been medically cleared for DC, S.O. to transport him home today. DC plan is for pt to follow up outpatient PT, OT.
== END 2023-10-02 12:10 | disposition home health service (06) | DRG 558 ==
LOC: HO.ED 15:11 → HO.EDOVER 17:01 → HO.IMC 09-27 19:38
PROVIDERS: Internal Medicine; Admitting Provider Student in an Organized Health Care Education/Training Program; Emergency Provider Emergency Medicine; PCP Family Medicine; Visit Provider Internal Medicine
DX: M62.82 Rhabdomyolysis (principal); N17.9 Acute kidney failure, unspecified; E87.21 Acute metabolic acidosis; A04.72 Enterocolitis due to Clostridium difficile, not specified as recurrent; F10.90 Alcohol use, unspecified, uncomplicated; F19.14 Other psychoactive substance abuse with psychoactive substance-induced mood disorder; K21.9 Gastro-esophageal reflux disease without esophagitis; F17.210 Nicotine dependence, cigarettes, uncomplicated; Z71.6 Tobacco abuse counseling; R33.9 Retention of urine, unspecified; E87.5 Hyperkalemia; Z20.822 Contact with and (suspected) exposure to COVID-19; F11.10 Opioid abuse, uncomplicated; F14.10 Cocaine abuse, uncomplicated; Z79.899 Other long term (current) drug therapy
CPT/HCPCS: 36415; 70450; 71250; 72125; 74176; 80048; 80076; 80307; 81001; 82550; 82803; 82947; 83605; 83690; 83735; 83880; 84132; 84484; 85025; 85027; 85610; 87040; 87086; 87324; 87493; 87502; 87635; 93005; 93306; 93356; 93971; 94640; 97110; 97116; 97162; 97166; 97530; 99285; C1758; J0613; J0696; J1644; J2270; J2405; J7120; Q9957

== ENCOUNTER → 2023-09-26 11:25 | Outpatient (BNV) | payer MEDICARE, MEDICAID, SELFPAY | PROVIDERS: Emergency Provider Emergency Medicine; Visit Provider Internal Medicine | DX: R94.31 Abnormal electrocardiogram [ECG] [EKG] (principal) | CPT/HCPCS: 93010 ==

== ENCOUNTER 2023-09-26 16:41 | Outpatient (BNV) | payer MEDICARE, MEDICAID, SELFPAY | END 2023-09-27 07:00 | PROVIDERS: Admitting Provider Student in an Organized Health Care Education/Training Program; Emergency Provider Emergency Medicine; PCP Family Medicine; Visit Provider Internal Medicine | DX: I36.1 Nonrheumatic tricuspid (valve) insufficiency (principal); R07.9 Chest pain, unspecified | CPT/HCPCS: 93306 ==

== ENCOUNTER → 2023-09-26 16:41 | Outpatient (BNV) | payer MEDICARE, MEDICAID, SELFPAY | PROVIDERS: Admitting Provider Student in an Organized Health Care Education/Training Program; Emergency Provider Emergency Medicine; PCP Family Medicine; Visit Provider Psychiatry & Neurology Neurology | DX: M62.82 Rhabdomyolysis (principal) | CPT/HCPCS: 99222 ==

== ENCOUNTER → 2023-09-26 16:41 | Outpatient (BNV) | payer MEDICARE, MEDICAID, SELFPAY | PROVIDERS: Admitting Provider Student in an Organized Health Care Education/Training Program; Emergency Provider Emergency Medicine; Visit Provider Student in an Organized Health Care Education/Training Program | DX: N17.9 Acute kidney failure, unspecified (principal); R29.898 Other symptoms and signs involving the musculoskeletal system; M62.82 Rhabdomyolysis; F14.10 Cocaine abuse, uncomplicated | CPT/HCPCS: 99223; 99232; 99233; 99238 ==

== ENCOUNTER → 2023-09-26 16:41 | Outpatient (BNV) | payer MEDICARE, MEDICAID, SELFPAY | PROVIDERS: Admitting Provider Student in an Organized Health Care Education/Training Program; Emergency Provider Emergency Medicine; PCP Family Medicine; Visit Provider Internal Medicine Nephrology | DX: N17.9 Acute kidney failure, unspecified (principal); M62.82 Rhabdomyolysis; F14.10 Cocaine abuse, uncomplicated; E87.5 Hyperkalemia | CPT/HCPCS: 99223; 99231; 99232 ==

== ENCOUNTER → 2023-09-26 16:41 | Outpatient (BNV) | payer MEDICARE, MEDICAID, SELFPAY | PROVIDERS: Admitting Provider Student in an Organized Health Care Education/Training Program; Emergency Provider Emergency Medicine; PCP Family Medicine; Visit Provider Internal Medicine | DX: M62.82 Rhabdomyolysis (principal); R33.8 Other retention of urine; F14.10 Cocaine abuse, uncomplicated; F11.10 Opioid abuse, uncomplicated; A04.72 Enterocolitis due to Clostridium difficile, not specified as recurrent | CPT/HCPCS: 99222 ==

== ENCOUNTER → 2023-09-26 16:41 | Outpatient (BNV) | payer MEDICARE, MEDICAID, SELFPAY | PROVIDERS: Admitting Provider Student in an Organized Health Care Education/Training Program; Emergency Provider Emergency Medicine; PCP Family Medicine; Visit Provider Social Worker | DX: F19.94 Other psychoactive substance use, unspecified with psychoactive substance-induced mood disorder (principal) | CPT/HCPCS: 99232 ==